=== PATIENT | male | born 1955 | race African-American/Black ===

== ENCOUNTER 2017-11-14 07:59 | Emergency (ER) | payer SELFPAY ==
[~2017-11-14] VITALS: Ht 180.3 cm; Wt 81.2 kg
[~2017-11-14 07:59] MED LIST: AMLO5TAB2 GT; INDM25C PO; LISI20TA PO
[2017-11-14 08:15] LABS: BASOPHILS % (AUTO) 0 % (0-10); EOSINOPHILS % (AUTO) 0 % (0-10); HEMATOCRIT 37 % (40-54); HEMOGLOBIN 12.3 G/DL (13.3-17.7); LYMPHOCYTES # (AUTO) 2.4 X 10^3 (1.0-4.0); LYMPHOCYTES % (AUTO) 22 % (12-44); MEAN CORPUSCULAR HEMOGLOBIN 28 PG (25-34); MEAN CORPUSCULAR HGB CONC 34 G/DL (32-36); MEAN CORPUSCULAR VOLUME 83 FL (80-99); MEAN PLATELET VOLUME 9.6 FL (7.4-10.4); MONOCYTES # (AUTO) 0.6 X 10^3 (0.0-1.0); MONOCYTES % (AUTO) 5 % (0-12); NEUTROPHILS # (AUTO) 8.1 X 10^3 (1.8-7.8); NEUTROPHILS % (AUTO) 73 % (42-75); PLATELET COUNT 272 10^3/uL (130-400); RED BLOOD COUNT 4.45 10^6/uL (4.35-5.85); RED CELL DISTRIBUTION WIDTH 16.6 % (10.0-14.5)
[2017-11-14] MEDS ORDERED: NITROGLYCERIN 0.4 MG SL TABS BTL 25'S SL PRN (08:15)
--- NOTE | 2017-11-14 08:20 | ED Cardiac General ---
History of Present Illness General Chief Complaint: Chest Pain Stated Complaint: CP Source: patient, family, EMS Exam Limitations: no limitations History of Present Illness Date Seen by Provider: Nov 14, 2017 Time Seen by Provider: 08:17 Initial Comments 62-year-old black male presents with severe sharp pain between his shoulder blades that occurred after eating a large breakfast. The patient's sharp severe chest pain radiated into both arms. The patient denied associated shortness of breath, diaphoresis, nausea or vomiting. Patient denies similar pain in the past. Significant past medical history includes hypertension. Allergies and Home Medications Allergies Coded Allergies: No Known Drug Allergies (Unverified , 11/30/14) Home Medications Amlodipine Besylate 5 Mg Tab, 5 MG GT DAILY Prescribed by: JOHN SHARMA on 11/30/14 1408 Indomethacin 25 Mg Cap, 25 MG PO TID Prescribed by: JOHN SHARMA on 11/30/14 1408 Lisinopril 20 Mg Tablet, 20 MG PO DAILY Prescribed by: JOHN SHARMA on 11/30/14 1408 Patient Home Medication List Home Medication List Reviewed: Yes Review of Systems Constitutional: No chills, No diaphoresis, No fever EENTM: No Blurred Vision Respiratory: Denies Cough, Denies Shortness of Air Cardiovascular: See HPI, Chest Pain Gastrointestinal: Denies Abdomen Distended, Denies Abdominal Pain, Denies Diarrhea, Denies Nausea Genitourinary: Denies Burning, Denies Frequency Musculoskeletal: see HPI, back pain Skin: No change in color, No rash Psychiatric/Neurological: No Symptoms Reported Endocrine: No Symptoms Reported Hematologic/Lymphatic: No Symptoms Reported Past Qcdwhls-Ecfmih-Vcuhpk Hx Past Med/Social Hx: Reviewed Nursing Past Med/Soc Hx Patient Social History Alcohol Use: Occasionally Uses Recreational Drug Use: No Smoking Status: Current Everyday Smoker Seasonal Allergies Seasonal Allergies: No Past Medical History Surgeries: Yes (R HAND) Respiratory: No Cardiac: Yes Hypertension Neurological: No Genitourinary: No Gastrointestinal: No Musculoskeletal: Yes Arthritis Endocrine: No Cancer: No Psychosocial: No Integumentary: No Blood Disorders: No Physical Exam Vital Signs Vital Signs - First Documented 11/14/17 08:25 Temp 97.4 Pulse 86 Resp 18 B/P (MAP) 170/109 (129) Pulse Ox 94 O2 Delivery Room Air Capillary Refill : Height, Weight, BMI Height: 5'7" Weight: 198lbs. oz. 89.301302ci; BMI Method: General Appearance: WD/WN, Mild Distress HEENT: Normal ENT Inspection Neck: Normal Inspection Respiratory: Lungs Clear Cardiovascular: Regular Rate, Rhythm, No Murmur Gastrointestinal: Normal Bowel Sounds Extremity: Normal Capillary Refill, Normal Inspection, Normal Range of Motion Neurologic/Psychiatric: Alert, Oriented x3, No Motor/Sensory Deficits Skin: Normal Color, Warm/Dry Progress/Results/Core Measures Results/Orders Lab Results Laboratory Tests Test 11/14/17 08:07 Range/Units White Blood Count 11.0 4.3-11.0 10^3/uL Red Blood Count 4.45 4.35-5.85 10^6/uL Hemoglobin 12.3 L 13.3-17.7 G/DL Hematocrit 37 L 40-54 % Mean Corpuscular Volume 83 80-99 FL Mean Corpuscular Hemoglobin 28 25-34 PG Mean Corpuscular Hemoglobin Concent 34 32-36 G/DL Red Cell Distribution Width 16.6 H 10.0-14.5 % Platelet Count 272 130-400 10^3/uL Mean Platelet Volume 9.6 7.4-10.4 FL Neutrophils (%) (Auto) 73 42-75 % Lymphocytes (%) (Auto) 22 12-44 % Monocytes (%) (Auto) 5 0-12 % Eosinophils (%) (Auto) 0 0-10 % Basophils (%) (Auto) 0 0-10 % Neutrophils # (Auto) 8.1 H 1.8-7.8 X 10^3 Lymphocytes # (Auto) 2.4 1.0-4.0 X 10^3 Monocytes # (Auto) 0.6 0.0-1.0 X 10^3 Eosinophils # (Auto) 0.0 0.0-0.3 10^3/uL Basophils # (Auto) 0.0 0.0-0.1 10^3/uL Prothrombin Time 12.8 12.2-14.7 SEC INR Comment 1.0 0.8-1.4 Activated Partial Thromboplast Time 27 24-35 SEC D-Dimer 0.36 0.00-0.49 UG/ML Sodium Level 146 H 135-145 MMOL/L Potassium Level 3.7 3.6-5.0 MMOL/L Chloride Level 116 H 98-107 MMOL/L Carbon Dioxide Level 19 L 21-32 MMOL/L Anion Gap 11 5-14 MMOL/L Blood Urea Nitrogen 21 H 7-18 MG/DL Creatinine 1.20 0.60-1.30 MG/DL Estimat Glomerular Filtration Rate > 60 BUN/Creatinine Ratio 18 Glucose Level 117 H 70-105 MG/DL Calcium Level 9.6 8.5-10.1 MG/DL Magnesium Level 2.0 1.8-2.4 MG/DL Total Bilirubin 0.2 0.1-1.0 MG/DL Aspartate Amino Transf (AST/SGOT) 23 5-34 U/L Alanine Aminotransferase (ALT/SGPT) 30 0-55 U/L Alkaline Phosphatase 53 40-136 U/L Myoglobin 23.6 10.0-92.0 NG/ML Troponin I < 0.30 <0.30 NG/ML B-Type Natriuretic Peptide 76.5 <100.0 PG/ML Total Protein 7.0 6.4-8.2 GM/DL Albumin 3.8 3.2-4.5 GM/DL Lipase 38 8-78 U/L My Orders Orders - MICHAEL, MIKAYLA Kim MD Cbc With Automated Diff (11/14/17 08:06) Magnesium (11/14/17 08:06) Chest 1 View, Ap/Pa Only (11/14/17 08:06) Ekg Tracing (11/14/17 08:06) Cardiac Profile 1 (11/14/17 08:06) Comprehensive Metabolic Panel (11/14/17 08:06) Myoglobin Serum (11/14/17 08:06) Protime With Inr (11/14/17 08:06) Partial Thromboplastin Time (11/14/17 08:06) O2 (11/14/17 08:06) Monitor-Rhythm Ecg Trace Only (11/14/17 08:06) Lipid Panel (11/15/17 06:00) Nitroglycerin 0.4 Mg Btl 25's (Nitrostat (11/14/17 08:15) Saline Lock/Iv-Start (11/14/17 08:06) Lipase (11/14/17 08:06) BNP (11/14/17 08:06) Fibrin Degradation Products (11/14/17 08:06) Metoprolol Tartrate Injection (Lopressor (11/14/17 08:30) Fentanyl Injection (Sublimaze Injection (11/14/17 09:15) Orphenadrine Injection (Norflex Injectio (11/14/17 09:15) Ct Angio Chest W (11/14/17 09:07) Iohexol Injection (Omnipaque 350 Mg/Ml 1 (11/14/17 09:30) Ns (Ivpb) (Sodium Chloride 0.9%) (11/14/17 09:30) Pharmacy Communication (Pharmacy Communi (11/14/17 09:20) Medications Given in ED Current Medications Medications Dose Ordered Sig/Elly Route Start Time Stop Time Status Last Admin Dose Admin Fentanyl Citrate 50 mcg ONCE ONCE IVP 11/14/17 09:15 11/14/17 09:16 DC 11/14/17 09:09 50 MCG Iohexol 125 ml ONCE ONCE IV 11/14/17 09:30 11/14/17 09:48 DC 11/14/17 09:31 125 ML Nitroglycerin 0.4 mg UD PRN SL 11/14/17 08:15 11/14/17 08:28 0.4 MG Orphenadrine Citrate 60 mg ONCE ONCE IV 11/14/17 09:15 11/14/17 09:16 DC 11/14/17 09:10 60 MG Sodium Chloride 250 ml ONCE ONCE IV 11/14/17 09:30 11/14/17 09:48 DC 11/14/17 09:31 80 ML Vital Signs/I&O 11/14/17 11/14/17 11/14/17 11/14/17 08:25 08:40 09:51 10:31 Temp 97.4 Pulse 86 86 68 72 Resp 18 18 18 B/P (MAP) 170/109 (129) 143/95 (111) 163/95 (117) 160/95 (116) Pulse Ox 94 96 98 97 O2 Delivery Room Air Room Air Room Air Room Air Progress Progress Note : Time: 10:42 Progress Note The patient's workup in the emergency department demonstrated an unremarkable EKG. There was some minimal improvement with the patient's back pain with nitroglycerin. Patient's first troponin was normal. The patient's d-dimer was normal. A CT study for PE was negative. While the patient was in radiology he vomited a large amount of food. His pain spontaneously resolved following the emesis. Departure Impression Primary Impression: Indigestion Disposition: 01 HOME, SELF-CARE Condition: Improved Departure-Patient Inst. Decision time for Depature: 10:46 Referrals: RAJENDRA TANNER MD (PCP/Family) Primary Care Physician Patient Instructions: Dyspepsia (DC) Add. Discharge Instructions: Close follow-up with your doctor. Call the office today. Return if any further problems. All discharge instructions reviewed with patient and/or family. Voiced understanding. MIKAYLA RODRIGUEZ MD Nov 14, 2017 08:20
[2017-11-14 08:28] LABS: PROTHROMBIN TIME PATIENT 12.8 SEC (12.2-14.7)
[2017-11-14] MEDS ORDERED: meTOprolol 5 MG/5 ML (LOPRESSOR) VIAL IV ONE (08:30)
[2017-11-14 08:36] LABS: ALANINE AMINOTRANSFERASE 30 U/L (0-55); ALBUMIN 3.8 GM/DL (3.2-4.5); ALKALINE PHOSPHATASE 53 U/L (40-136); BILIRUBIN,TOTAL 0.2 MG/DL (0.1-1.0); BUN/CREATININE RATIO 18; CALCIUM 9.6 MG/DL (8.5-10.1); CARBON DIOXIDE 19 MMOL/L (21-32); CHLORIDE 116 MMOL/L (98-107); GFR ESTIMATED > 60; GLUCOSE 117 MG/DL (70-105); LIPASE 38 U/L (8-78); POTASSIUM 3.7 MMOL/L (3.6-5.0); SODIUM 146 MMOL/L (135-145)
[2017-11-14 08:40] VITALS: BP_SYST 143; BP_SYST 150; BP_DIAS 102; BP_DIAS 95
[2017-11-14 08:46] LABS: MYOGLOBIN SERUM 23.6 NG/ML (10.0-92.0)
--- NOTE | 2017-11-14 09:13 | Diagnostic Imaging Report ---
Indication: Chest pain. Time of exam: 8:49 AM No prior studies available for comparison. The heart size is normal. There is some prominence of the ascending aorta. Some ectasia and tortuosity of the descending thoracic aorta. Lungs are clear. No infiltrate or failure is seen. Pulmonary vascularity is normal. No effusion or pneumothorax is detected. Impression: No acute cardiopulmonary process is detected. Dictated by: Dictated on workstation # [id number]
[2017-11-14] MEDS ORDERED: fentaNYL INJECTION 100 MCG/2 ML AMP IVP ONE (09:15)
[2017-11-14] MEDS ORDERED: ORPHENADRINE 60 MG/2 ML (NORFLEX) AMP IV ONE (09:15)
[2017-11-14] MEDS ORDERED: IOHEXOL 350 MG/ML 150 ML (OMNIPAQUE 350) VIAL IV ONE (09:30)
[2017-11-14] MEDS ORDERED: NS 250 ML (IVPB) BAG IV ONE (09:30)
[2017-11-14 09:51] VITALS: BP 163/95
--- NOTE | 2017-11-14 10:03 | Diagnostic Imaging Report ---
PROCEDURE: CT angiography of the chest with contrast. TECHNIQUE: Multiple contiguous axial images were obtained through the chest after uneventful bolus administration of intravenous contrast. Reconstructed CTA MIP acquisitions were also performed. INDICATION: Chest pain and back spasms. No prior CT angiogram studies of the chest are available for comparison. Evaluation of the pulmonary arterial system is without evidence of thrombi embolism. No filling defects are seen within central, lobar or segmental branches. Ascending thoracic aorta is somewhat prominent AP diameter 4.6 cm. Aortic arch and descending thoracic aorta are normal caliber. No dissection is identified. No pericardial or pleural fluid is identified. No definite axillary, hilar or mediastinal lymphadenopathy is detected. No parenchymal mass, nodule or infiltrate is detected. The upper abdomen is unremarkable. The bony structures are nonacute. IMPRESSION: 1. Mild ascending thoracic aortic dilatation. No dissection is detected. 2. No evidence of pulmonary embolism. Dictated by: Dictated on workstation # [id number]
[2017-11-14 10:31] VITALS: BP 160/95
[2017-11-14 11:03] VITALS: BP 161/101
== END 2017-11-14 11:03 | disposition home or self-care (01) ==
LOC: EDUNIT# 07:59 → ER 08:00
DX: K30 Functional dyspepsia (principal); I10 Essential (primary) hypertension; F17.200 Nicotine dependence, unspecified, uncomplicated
CPT/HCPCS: 36415; 71045; 71275; 80053; 83690; 83735; 83874; 83880; 84484; 85025; 85379; 85610; 85730; 93005; 93041; 96374; 96375

== ENCOUNTER → 2017-12-08 | Outpatient (CLI) | payer OTHER ==
--- NOTE | 2017-12-08 12:09 | Diagnostic Imaging Report ---
INDICATION: Knee pain, nontraumatic. TECHNIQUE: Two views of the bilateral knees. CORRELATION STUDY: None FINDINGS: There is very mild joint space narrowing suggested about the medial compartments bilaterally. The articular surface is otherwise smooth and intact. Calcification projects over the posterior aspect of the joint space of the right knee. The possibility of a calcified intraarticular loose body is not excluded. There does appear to be narrowing of the patellofemoral compartment, right greater than left. Well-corticated calcification superior to the tibial tuberosities bilaterally likely reflects a prior avulsion type injury. . IMPRESSION: 1. Negative for acute bony abnormality of the knee. Mild multicompartment degenerative changes are present, right slightly greater than left. The findings are slightly more pronounced in the patellofemoral compartments. 2. Small calcified intraarticular loose body suspected in the right posterior knee. Dictated by: Dictated on workstation # [id number]
== END ==
LOC: RAD 09:49
PROVIDERS: ATTEND General Practice
DX: M17.0 Bilateral primary osteoarthritis of knee (principal)

== ENCOUNTER 2019-03-01 19:01 | Emergency (ER) | payer MEDICAID, OTHER ==
[~2019-03-01] VITALS: Ht 172 cm; Wt 83.0 kg
--- NOTE | 2019-03-01 19:11 | ED Upper Extremity ---
General Stated Complaint: LT SHOULDER PAIN Source: patient History of Present Illness Date Seen by Provider: Mar 01, 2019 Time Seen by Provider: 19:11 Initial Comments 63-year-old male presenting with complaints of left shoulder pain. He states that this started a few weeks ago when he was lifting some heavy furniture at home by himself. He felt a pop in his shoulder and has had pain ever since. It wraps around his shoulder and is worse with movement. He denies having prior pain or problems with his shoulder. He has no numbness or tingling into his hand or arm. He has no weakness in his arm. He has not tried anything for the pain over the last few weeks. He states that the pain got worse today with the colder weather and rain moving in. Allergies and Home Medications Allergies Coded Allergies: No Known Drug Allergies (Unverified , 11/30/14) Home Medications Amlodipine Besylate 5 Mg Tab, 5 MG GT DAILY Prescribed by: JOHN SHARMA on 11/30/14 1408 Indomethacin 25 Mg Cap, 25 MG PO TID Prescribed by: JOHN SHARMA on 11/30/14 1408 Lisinopril 20 Mg Tablet, 20 MG PO DAILY Prescribed by: JOHN SHARMA on 11/30/14 1408 Patient Home Medication List Home Medication List Reviewed: Yes Review of Systems Constitutional: no symptoms reported EENTM: no symptoms reported Respiratory: no symptoms reported Cardiovascular: no symptoms reported Gastrointestinal: no symptoms reported Genitourinary: no symptoms reported Musculoskeletal: see HPI Skin: no symptoms reported Psychiatric/Neurological: See HPI Past Fnrfxvm-Hlrcdq-Yctmkq Hx Past Med/Social Hx: Reviewed Nursing Past Med/Soc Hx Patient Social History Recent Foreign Travel: No Contact w/Someone Who Travel: No Seasonal Allergies Seasonal Allergies: No Past Medical History Surgeries: Yes (R HAND) Respiratory: No Cardiac: Yes Hypertension Neurological: No Genitourinary: No Gastrointestinal: No Musculoskeletal: Yes Arthritis Endocrine: No Cancer: No Psychosocial: No Integumentary: No Blood Disorders: No Physical Exam Vital Signs Vital Signs - First Documented 03/01/19 19:08 Temp 36.5 Pulse 85 Resp 16 B/P (MAP) 162/102 (122) Pulse Ox 96 O2 Delivery Room Air Capillary Refill : Height, Weight, BMI Height: 5'11.00" Weight: 179lbs. oz. 81.948407pw; BMI Method:Stated General Appearance: WD/WN, no apparent distress Cardiovascular: normal peripheral pulses, regular rate, rhythm Respiratory: chest non-tender, lungs clear, normal breath sounds Shoulder: no evidence of injury, normal ROM (but painful range of motion. Able to hold arm up against resistance at 90 degrees of abduction); No asymmetry, No bone tenderness, No deformity, No ecchymosis; pain (left shoulder and clavicle), soft tissue tenderness (left shoulder and clavicle); No swelling Neurologic/Tendon: normal sensation, normal motor functions, normal tendon functions Neurologic/Psychiatric: alert, normal mood/affect, oriented x 3 Skin: normal color, warm/dry Progress/Results/Core Measures Results/Orders My Orders Orders - LORRAINE ALANIS MD Ketorolac Injection (Toradol Injection) (03/01/19 19:30) Shoulder 3 View Left (03/01/19 19:25) Dexamethasone Injection (Decadron Inject (03/01/19 20:13) Methylprednisolone Acetate Inj (Depo-Med (03/01/19 20:13) Rx-Hydrocodone/Apap 5-325 Mg (Rx-Vicodin (03/01/19 20:15) Orthopedic Equiment (03/01/19 20:13) Medications Given in ED Current Medications Medications Dose Ordered Sig/Elly Route Start Time Stop Time Status Last Admin Dose Admin Acetaminophen/ Hydrocodone Bitart 1 ea Q6H PRN PO 03/01/19 20:15 03/01/19 20:21 1 EA Ketorolac Tromethamine 60 mg ONCE ONCE IM 03/01/19 19:30 03/01/19 19:31 DC 03/01/19 19:30 60 MG Vital Signs/I&O 03/01/19 19:08 Temp 36.5 Pulse 85 Resp 16 B/P (MAP) 162/102 (122) Pulse Ox 96 O2 Delivery Room Air Progress Progress Note : Progress Note obtain xrays of left shoulder and no fracture or dislocation seen. arthritic changes noted. treat symptomatically with sling to rest shoulder and steroids for inflammation. Counseled to follow up with orthopedics/pcp for PT or MRI Diagnostic Imaging Diagonstic Imaging: Xray Plain Films/CT/US/NM/MRI: other (shoulder) Comments NAME: NANDINI MANZO REC#: [id number] PT STATUS: REG ER : 1955 PHYSICIAN: LORRAINE ALANIS MD ADMIT DATE: 03/01/19/ER FS Draft POSDate of Exam:03/01/19 SHOULDER 3 VIEW LEFT INDICATION: Left shoulder pain following lifting injury. FINDINGS: 3 views. The glenoid is in good alignment with the humeral head. Articulating surfaces are smooth. Joint spaces are well preserved. AC joint shows good alignment with mild hypertrophic change. There are no fractures. No soft tissue calcifications are seen about the shoulder. IMPRESSION: Mild degenerative changes noted in the AC joint with no acute abnormalities. Dictated on workstation # [id number] Dict: 03/01/191945 Trans: 03/01/19 1950 [facility] [id number] Interpreted by: JEANNETTE TA MD Electronically signed by: Departure Impression Primary Impression: Left shoulder strain Qualified Codes: S46.912A - Strain of unspecified muscle, fascia and tendon at shoulder and upper arm level, left arm, initial encounter Additional Impression: Arthritis of left shoulder region Disposition: 01 HOME, SELF-CARE Condition: Stable Departure-Patient Inst. Decision time for Depature: 20:16 Referrals: RAJENDRA TANNER MD (PCP/Family) Primary Care Physician Patient Instructions: How to Use a Shoulder Sling, Osteoarthritis (DC), Shoulder Pain (DC), Shoulder Sprain (DC) Add. Discharge Instructions: Use the shoulder sling for the next 3 days to let your arm and shoulder rest. After 3 days make sure you are taking your arm out and moving your shoulder around to keep it from stiffening up or freezing up. The steroids will help with pain and inflammation. Follow up with Ja Ferreira with Orthopedics by calling [phone] Gonzalez about your shoulder and they may want you to do Physical Therapy or have an MRI done to help with your shoulder pain. For severe pain and to help you rest you could use the Hydrocodone for the next night or two. LORRAINE ALANIS MD Mar 01, 2019 19:11 POS
[2019-03-01] MEDS ORDERED: KETOROLAC 60 MG/2 ML VIAL IM ONE (19:30)
--- NOTE | 2019-03-01 19:50 | Diagnostic Imaging Report ---
INDICATION: Left shoulder pain following lifting injury. FINDINGS: 3 views. The glenoid is in good alignment with the humeral head. Articulating surfaces are smooth. Joint spaces are well preserved. AC joint shows good alignment with mild hypertrophic change. There are no fractures. No soft tissue calcifications are seen about the shoulder. IMPRESSION: Mild degenerative changes noted in the AC joint with no acute abnormalities. Dictated by: Dictated on workstation # [id number]
[2019-03-01] MEDS ORDERED: DEXAMETHASONE 10 MG/ML (DECADRON) 1 ML VIAL IM STA (20:13)
[2019-03-01] MEDS ORDERED: methylPREDNISolone 80 MG/ML (DEPO MEDROL) VIAL IM STA (20:13)
[2019-03-01] MEDS ORDERED: RX-HYDROCODONE/APAP 5/325 MG #4 TAB PK PO PRN (20:15)
[2019-03-01 20:27] VITALS: BP 151/94
== END 2019-03-01 20:31 | disposition home or self-care (01) ==
LOC: EDUNIT# 19:01 → ER FS 19:03
DX: S46.912A Strain of unspecified muscle, fascia and tendon at shoulder and upper arm level, left arm, initial encounter (principal); I10 Essential (primary) hypertension; M19.012 Primary osteoarthritis, left shoulder; X50.0XXA Overexertion from strenuous movement or load, initial encounter; Y92.009 Unspecified place in unspecified non-institutional (private) residence as the place of occurrence of the external cause
CPT/HCPCS: 73030; 96372

== ENCOUNTER 2020-05-23 14:56 | Emergency (ER) | payer MEDICAID ==
[2020-05-23] MEDS ORDERED: NS IV 1000 ML 1,000 ML ONE (15:26)
--- NOTE | 2020-05-23 15:37 | ED GI ---
General Chief Complaint: Abdominal/GI Problems Stated Complaint: VOMITING Nursing Triage Note: states he was exposed to someone with covid 19 three days ago. Developed nausea and vomiting the same day as exposure and states he has been unable to keep down food or fluids. Sepsis Screen: Possible Sepsis Risk Source of Information: Patient Exam Limitations: No Limitations History of Present Illness Date Seen by Provider: May 23, 2020 Time Seen by Provider: 15:20 Initial Comments 64-year-old male presents with 2 days of nausea and vomiting. Denies any abdominal pain, fever or chills, but is concerned as he was "exposed to COVID- 19". Denies any chest pain, shortness of air, cough or weakness. Patient with past medical history significant for coronary artery disease and a stent 6 months ago. Patient admits he's been off his blood pressure medicine for the past 10 days, but filled the prescription today although he has not taken any of it. Allergies and Home Medications Allergies Coded Allergies: No Known Drug Allergies (Unverified , 11/30/14) Home Medications Amlodipine Besylate 5 Mg Tab, 5 MG GT DAILY Prescribed by: JOHN SHARMA on 11/30/14 1408 Indomethacin 25 Mg Cap, 25 MG PO TID Prescribed by: JOHN SHARMA on 11/30/14 1408 Lisinopril 20 Mg Tablet, 20 MG PO DAILY Prescribed by: JOHN SHARMA on 11/30/14 1408 Patient Home Medication List Home Medication List Reviewed: Yes Review of Systems Review of Systems Constitutional: No chills, No dizziness, No fever; malaise; No weakness EENTM: No Symptoms Reported Respiratory: No Symptoms Reported; Denies Cough, Denies Shortness of Air Cardiovascular: Denies Chest Pain, Denies Edema, Denies Lightheadedness, Denies Palpitations, Denies Syncope Gastrointestinal: See HPI; Denies Abdominal Pain, Denies Constipated, Denies Diarrhea; Nausea, Poor Appetite, Poor Fluid Intake Musculoskeletal: No back pain, No joint pain Skin: No change in color, No rash Past Sufodcq-Avhmbo-Nphruz Hx Past Med/Social Hx: Reviewed Nursing Past Med/Soc Hx Patient Social History Alcohol Use: Denies Use Drug of Choice: marijuana Smoking Status: Current Everyday Smoker Type Used: Cigarettes 2nd Hand Smoke Exposure: Yes Recent Infectious Disease Expo: No Seasonal Allergies Seasonal Allergies: No Past Medical History Surgeries: Yes (R HAND) Respiratory: No Cardiac: Yes Heart Attack, High Cholesterol, Hypertension Neurological: No Genitourinary: No Gastrointestinal: No Musculoskeletal: Yes Arthritis Endocrine: No HEENT: No Cancer: No Psychosocial: No Integumentary: No Blood Disorders: No Physical Exam Vital Signs Vital Signs - First Documented 05/23/20 15:10 Temp 35.8 Pulse 91 Resp 22 B/P (MAP) 194/108 (136) Pulse Ox 100 Capillary Refill : Less Than 3 Seconds Height/Weight/BMI Height: 5'11.00" Weight: 179lbs. oz. 81.286529sm; 28.00 BMI Method:Stated General Appearance: WD/WN, no apparent distress HEENT: PERRL/EOMI, normal ENT inspection Neck: non-tender, supple Respiratory: chest non-tender, lungs clear, normal breath sounds, no respiratory distress, no accessory muscle use Cardiovascular: regular rate, rhythm, no edema, no JVD Gastrointestinal: normal bowel sounds, non tender, soft, no pulsatile mass Extremities: normal range of motion, non-tender, no pedal edema Back: normal inspection, no CVA tenderness Neurologic/Psychiatric: alert, normal mood/affect Skin: normal color, warm/dry Progress/Results/Core Measures Results/Orders Lab Results Laboratory Tests Test 05/23/20 15:27 Range/Units White Blood Count 5.5 4.3-11.0 10^3/uL Red Blood Count 5.28 4.35-5.85 10^6/uL Hemoglobin 14.5 13.3-17.7 G/DL Hematocrit 44 40-54 % Mean Corpuscular Volume 83 80-99 FL Mean Corpuscular Hemoglobin 27 25-34 PG Mean Corpuscular Hemoglobin Concent 33 32-36 G/DL Red Cell Distribution Width 15.2 H 10.0-14.5 % Platelet Count 269 130-400 10^3/uL Mean Platelet Volume 9.4 7.4-10.4 FL Neutrophils (%) (Auto) 62 42-75 % Lymphocytes (%) (Auto) 30 12-44 % Monocytes (%) (Auto) 6 0-12 % Eosinophils (%) (Auto) 2 0-10 % Basophils (%) (Auto) 0 0-10 % Neutrophils # (Auto) 3.4 1.8-7.8 X 10^3 Lymphocytes # (Auto) 1.6 1.0-4.0 X 10^3 Monocytes # (Auto) 0.3 0.0-1.0 X 10^3 Eosinophils # (Auto) 0.1 0.0-0.3 10^3/uL Basophils # (Auto) 0.0 0.0-0.1 10^3/uL Sodium Level 137 135-145 MMOL/L Potassium Level 4.0 3.6-5.0 MMOL/L Chloride Level 99 98-107 MMOL/L Carbon Dioxide Level 28 21-32 MMOL/L Anion Gap 10 5-14 MMOL/L Blood Urea Nitrogen 15 7-18 MG/DL Creatinine 1.25 0.60-1.30 MG/DL Estimat Glomerular Filtration Rate > 60 BUN/Creatinine Ratio 12 Glucose Level 123 H 70-105 MG/DL Calcium Level 9.3 8.5-10.1 MG/DL Corrected Calcium 9.2 8.5-10.1 MG/DL Total Bilirubin 0.5 0.1-1.0 MG/DL Aspartate Amino Transf (AST/SGOT) 29 5-34 U/L Alanine Aminotransferase (ALT/SGPT) 28 0-55 U/L Alkaline Phosphatase 73 40-136 U/L Troponin I < 0.30 <0.30 NG/ML Total Protein 7.2 6.4-8.2 GM/DL Albumin 4.1 3.2-4.5 GM/DL My Orders Orders - ROVENSTGENARO OSCAREN L DO Ns Iv 1000 Ml (Sodium Chloride 0.9%) (05/23/20 15:26) Ed Iv/Invasive Line Start (05/23/20 15:32) Cbc With Automated Diff (05/23/20 15:32) Comprehensive Metabolic Panel (05/23/20 15:32) Troponin I Fs (05/23/20 15:32) Ondansetron Injection (Zofran Injectio (05/23/20 15:45) Medications Given in ED Current Medications Medications Dose Ordered Sig/Elly Route Start Time Stop Time Status Last Admin Dose Admin Ondansetron HCl 4 mg ONCE ONCE IVP 05/23/20 15:45 05/23/20 15:46 DC 05/23/20 16:08 4 MG Sodium Chloride 1,000 ml @ STK-MED ONCE .ROUTE 05/23/20 15:26 05/23/20 15:31 DC 05/23/20 16:08 999 MLS/HR Vital Signs/I&O 05/23/20 15:10 Temp 35.8 Pulse 91 Resp 22 B/P (MAP) 194/108 (136) Pulse Ox 100 Blood Pressure Mean: 136 Departure Impression Primary Impression: Nausea and vomiting Qualified Codes: R11.2 - Nausea with vomiting, unspecified Disposition: 01 HOME, SELF-CARE Condition: Improved Departure-Patient Inst. Decision time for Depature: 16:21 Referrals: RAJENDRA TANNER MD (PCP/Family) Primary Care Physician Patient Instructions: Nausea and Vomiting, Adult ED Add. Discharge Instructions: Follow up with Dr Tanner in 2 days if you are not improving, sooner if worse. PLEASE take your blood pressure medication DAILY as instructed. If you are running low, please ask for a refill before you run out. All discharge instructions reviewed with patient and/or family. Voiced understanding. Scripts Ondansetron (Ondansetron Odt) 4 Mg Tab.rapdis 4 MG PO TID for Nausea, #10 TAB Prov: JAMIL FAULKNER DO 05/23/20 JAMIL FAULKNER DO May 23, 2020 15:37
[2020-05-23 15:38] LABS: HEMATOCRIT 44 % (40-54); HEMOGLOBIN 14.5 G/DL (13.3-17.7); MEAN CORPUSCULAR HEMOGLOBIN 27 PG (25-34); MEAN CORPUSCULAR HGB CONC 33 G/DL (32-36); MEAN CORPUSCULAR VOLUME 83 FL (80-99); MEAN PLATELET VOLUME 9.4 FL (7.4-10.4); PLATELET COUNT 269 10^3/uL (130-400); WHITE BLOOD COUNT 5.5 10^3/uL (4.3-11.0)
[2020-05-23 15:39] LABS: BASOPHILS % (AUTO) 0 % (0-10); EOSINOPHILS # (AUTO) 0.1 10^3/uL (0.0-0.3); EOSINOPHILS % (AUTO) 2 % (0-10); LYMPHOCYTES # (AUTO) 1.6 X 10^3 (1.0-4.0); LYMPHOCYTES % (AUTO) 30 % (12-44); MONOCYTES # (AUTO) 0.3 X 10^3 (0.0-1.0); MONOCYTES % (AUTO) 6 % (0-12); NEUTROPHILS # (AUTO) 3.4 X 10^3 (1.8-7.8); NEUTROPHILS % (AUTO) 62 % (42-75)
[2020-05-23] MEDS ORDERED: ONDANSETRON 4 MG/2 ML (SDV) Z0FRAN IVP ONE (15:45)
[2020-05-23 15:56] LABS: CARBON DIOXIDE 28 MMOL/L (21-32); CHLORIDE 99 MMOL/L (98-107); SODIUM 137 MMOL/L (135-145)
[2020-05-23 15:57] LABS: ALANINE AMINOTRANSFERASE 28 U/L (0-55); ALBUMIN 4.1 GM/DL (3.2-4.5); ALKALINE PHOSPHATASE 73 U/L (40-136); BILIRUBIN,TOTAL 0.5 MG/DL (0.1-1.0); BUN/CREATININE RATIO 12; CALCIUM 9.3 MG/DL (8.5-10.1); CREATININE SERUM 1.25 MG/DL (0.60-1.30); GFR ESTIMATED > 60; GLUCOSE 123 MG/DL (70-105); TOTAL PROTEIN 7.2 GM/DL (6.4-8.2)
[2020-05-23] MEDS ORDERED: ONDA4TAB11 PO (16:22)
[2020-05-23 16:38] VITALS: BP 162/97
== END 2020-05-23 16:38 | disposition home or self-care (01) ==
LOC: EDUNIT# 14:56 → ER FS 14:58
DX: R11.2 Nausea with vomiting, unspecified (principal); I10 Essential (primary) hypertension; I25.2 Old myocardial infarction; F17.210 Nicotine dependence, cigarettes, uncomplicated
CPT/HCPCS: 36415; 80053; 84484; 85025

== ENCOUNTER 2020-05-24 17:19 | Emergency (ER) | payer MEDICAID ==
[~2020-05-24] VITALS: Ht 172.2 cm; Wt 78.0 kg
[~2020-05-24 17:19] MED LIST changes: +ONDA4TAB11 PO
[2020-05-24 17:51] LABS: ALBUMIN 4.1 GM/DL (3.2-4.5); BASOPHILS # (AUTO) 0.1 10^3/uL (0.0-0.1); BASOPHILS % (AUTO) 1 % (0-10); EOSINOPHILS # (AUTO) 0.2 10^3/uL (0.0-0.3); EOSINOPHILS % (AUTO) 3 % (0-10); HEMATOCRIT 44 % (40-54); HEMOGLOBIN 14.3 g/dL (13.3-17.7); LYMPHOCYTES # (AUTO) 1.9 10^3/uL (1.0-4.0); LYMPHOCYTES % (AUTO) 33 % (12-44); MEAN CORPUSCULAR HEMOGLOBIN 27 pg (25-34); MEAN CORPUSCULAR HGB CONC 32 g/dL (32-36); MEAN CORPUSCULAR VOLUME 84 fL (80-99); MEAN PLATELET VOLUME 9.2 fL (9.0-12.2); MONOCYTES # (AUTO) 0.4 10^3/uL (0.0-1.0); MONOCYTES % (AUTO) 7 % (0-12); NEUTROPHILS # (AUTO) 3.2 10^3/uL (1.8-7.8); NEUTROPHILS % (AUTO) 56 % (42-75); PLATELET COUNT 266 10^3/uL (130-400); WHITE BLOOD COUNT 5.8 10^3/uL (4.3-11.0)
[2020-05-24 17:52] LABS: CHLORIDE 100 MMOL/L (98-107); POTASSIUM 3.7 MMOL/L (3.6-5.0); SODIUM 139 MMOL/L (135-145)
[2020-05-24 17:53] LABS: CALCIUM 9.2 MG/DL (8.5-10.1)
[2020-05-24 17:54] LABS: GLUCOSE 77 MG/DL (70-105); TOTAL PROTEIN 7.9 GM/DL (6.4-8.2)
[2020-05-24 17:55] LABS: CARBON DIOXIDE 29 MMOL/L (21-32)
[2020-05-24 17:56] LABS: BILIRUBIN,TOTAL 0.3 MG/DL (0.1-1.0)
[2020-05-24 17:57] LABS: ALKALINE PHOSPHATASE 77 U/L (40-136)
[2020-05-24 17:58] LABS: CREATININE SERUM 1.45 MG/DL (0.60-1.30); GFR ESTIMATED 60
[2020-05-24 17:59] LABS: BUN/CREATININE RATIO 13
[2020-05-24 18:00] LABS: ALANINE AMINOTRANSFERASE 43 U/L (0-55)
--- NOTE | 2020-05-24 18:02 | ED Neurological Problem ---
General Chief Complaint: Neuro-Stroke Like Symptoms Stated Complaint: SLURRED SPEECH Nursing Triage Note: PT AMB TO [facility] 7 WITH COMPLAINT OF SLURRED SPEECH, N/V/D. WAS SEEN IN [facility] IN ER YESTERDAY FOR N/V/D AND GIVEN ZOFRAN. WOKE UP THIS MORNING WITH SLURRED SPEECH. Nursing Sepsis Screen: No Definite Risk Source: patient Exam Limitations: no limitations History of Present Illness Date Seen by Provider: May 24, 2020 Time Seen by Provider: 17:29 Initial Comments Here with report of waking up this morning with slurred speech and jerking mov ements. Seen in [place] yesterday for nausea, vomiting and diarrhea. In further questioning, he does have contact with somebody with "the virus" and is not sure if he has that. States nausea, vomiting and diarrhea started 2 days ago. Does have history of hypertension and heart disease. Apparently takes aspirin daily. He was started on ondansetron and that is the only new medicine. Still has some nausea, vomiting and diarrhea. Denies fever chills. Denies upper respiratory symptoms. States he overall does not feel well. Denies chest pain or breathing problems. Denies specific weakness or facial droop. Last known well time last night. Patient drove himself here from [place]. Timing/Duration: other (2 to 3 days) Severity: moderate Associated Symptoms: confusion; No fever/chills; nausea/vomiting, slurred speech; No vision changes, No weakness Allergies and Home Medications Allergies Coded Allergies: No Known Drug Allergies (Unverified , 11/30/14) Home Medications Amlodipine Besylate 5 Mg Tab, 5 MG GT DAILY Prescribed by: JOHN SHARMA on 11/30/14 140 Indomethacin 25 Mg Cap, 25 MG PO TID Prescribed by: JOHN SHARMA on 11/30/14 140 Lisinopril 20 Mg Tablet, 20 MG PO DAILY Prescribed by: JOHN SHARMA on 11/30/14 140 Ondansetron 4 Mg Tab.rapdis, 4 MG PO TID Prescribed by: JAMIL FAULKNER on 05/23/20 1622 Patient Home Medication List Home Medication List Reviewed: Yes Review of Systems Review of Systems Constitutional: see HPI; No chills, No fever Eyes: No Symptoms Reported Ears, Nose, Mouth, Throat: denies nose discharge, denies throat pain Cardiovascular: No chest pain, No edema Gastrointestinal: diarrhea, nausea, vomiting Genitourinary: no symptoms reported Musculoskeletal: no symptoms reported Psychiatric/Neurological: Denies Headache; Other (Jerking movements of the arms and neck) Hematologic/Lymphatic: No Symptoms Reported All Other Systems Reviewed Negative Unless Noted: Yes Past Zrjgqex-Hxekfe-Ckdzch Hx Past Med/Social Hx: Reviewed Nursing Past Med/Soc Hx Patient Social History Alcohol Use: Denies Use Drug of Choice: marijuana Smoking Status: Former Smoker Type Used: Cigarettes 2nd Hand Smoke Exposure: Yes Recent Infectious Disease Expo: No Immunizations Up To Date Tetanus Booster (TDap): Unknown PED Vaccines UTD: Yes Seasonal Allergies Seasonal Allergies: No Past Medical History Surgeries: Yes (R HAND) Coronary Stent Respiratory: No Cardiac: Yes Heart Attack, High Cholesterol, Hypertension Neurological: No Genitourinary: No Gastrointestinal: No Musculoskeletal: Yes Arthritis Endocrine: No HEENT: No Cancer: No Psychosocial: No Integumentary: No Blood Disorders: No Family Medical History Reviewed Nursing Family Hx No Pertinent Family Hx Physical Exam Vital Signs Vital Signs - First Documented 05/24/20 17:22 Pulse 83 Resp 20 B/P (MAP) 183/139 (154) Pulse Ox 100 O2 Delivery Room Air Capillary Refill : Less Than 3 Seconds Height, Weight, BMI Height: 5'11.00" Weight: 179lbs. oz. 81.068215zh; 26.00 BMI Method:Stated General Appearance: WD/WN, mild distress HEENT: PERRL/EOMI, pharynx normal Neck: non-tender, full range of motion, supple, other (Jerking movements with motion of head and shoulders) Respiratory: no respiratory distress, no accessory muscle use, crackles (Bilateral bases) Cardiovascular: regular rate, rhythm, no murmur Gastrointestinal: non tender, soft Back: normal inspection, no CVA tenderness, no vertebral tenderness Extremities: non-tender, other (Clubbing all fingers. Jerking movements noted with movement of upper extremities) Neurologic/Psychiatric: alert, other (Oriented to person and place but missed year and month. Reoriented and remembered date afterwards.) Crainal Nerves: PERRL, abnormal speech (Slightly slurred); No facial droop, No facial paresthesias, No facial weakness Coordination/Gait: normal finger to nose Motor/Sensory: no sensory deficit, no pronator drift Skin: normal color, warm/dry Stroke NIH Stroke Scale Assessment Level of Consciousness: 0=Alert (0), Level of Consciousness-Questions: 1=Answers one question (1), LOC Commands: 0=Performs both tasks (0), Visual Cheng: 0=No visual loss (0), Facial Movement (Facial Paresis): 0=Normal symmetrical mnt (0), Motor Function-Arms Right: 0=No drift (0), Motor Function-Arms Left: 0=No drift (0), Motor Function-Legs Right: 0=No drift (0), Motor Function-Legs Left: 0=No drift (0), Limb Ataxia: 0=Absent (0), Sensory: 0=Normal:no loss (0), Best Language: 0=No aphasia (0), Dysarthria: 1=Mild to moderate loss (1), Extinction & Inattention: 0=No abnormality (0), Total: Progress/Results/Core Measures Results/Orders Lab Results Laboratory Tests Test 05/24/20 17:33 05/24/20 17:35 05/24/20 17:36 05/24/20 19:15 Range/Units White Blood Count 5.8 4.3-11.0 10^3/uL Red Blood Count 5.26 4.30-5.52 10^6/uL Hemoglobin 14.3 13.3-17.7 g/dL Hematocrit 44 40-54 % Mean Corpuscular Volume 84 80-99 fL Mean Corpuscular Hemoglobin 27 25-34 pg Mean Corpuscular Hemoglobin Concent 32 32-36 g/dL Red Cell Distribution Width 14.7 H 10.0-14.5 % Platelet Count 266 130-400 10^3/uL Mean Platelet Volume 9.2 9.0-12.2 fL Immature Granulocyte % (Auto) 0 % Neutrophils (%) (Auto) 56 42-75 % Lymphocytes (%) (Auto) 33 12-44 % Monocytes (%) (Auto) 7 0-12 % Eosinophils (%) (Auto) 3 0-10 % Basophils (%) (Auto) 1 0-10 % Neutrophils # (Auto) 3.2 1.8-7.8 10^3/uL Lymphocytes # (Auto) 1.9 1.0-4.0 10^3/uL Monocytes # (Auto) 0.4 0.0-1.0 10^3/uL Eosinophils # (Auto) 0.2 0.0-0.3 10^3/uL Basophils # (Auto) 0.1 0.0-0.1 10^3/uL Immature Granulocyte # (Auto) 0.0 0.0-0.1 10^3/uL Prothrombin Time 13.3 12.2-14.7 SEC INR Comment 1.0 0.8-1.4 Activated Partial Thromboplast Time 35 24-35 SEC D-Dimer >= 0.27 0.00-0.49 UG/ML Sodium Level 139 135-145 MMOL/L Potassium Level 3.7 3.6-5.0 MMOL/L Chloride Level 100 98-107 MMOL/L Carbon Dioxide Level 29 21-32 MMOL/L Anion Gap 10 5-14 MMOL/L Blood Urea Nitrogen 19 H 7-18 MG/DL Creatinine 1.45 H 0.60-1.30 MG/DL Estimat Glomerular Filtration Rate 60 BUN/Creatinine Ratio 13 Glucose Level 77 70-105 MG/DL Calcium Level 9.2 8.5-10.1 MG/DL Corrected Calcium 9.1 8.5-10.1 MG/DL Total Bilirubin 0.3 0.1-1.0 MG/DL Aspartate Amino Transf (AST/SGOT) 28 5-34 U/L Alanine Aminotransferase (ALT/SGPT) 43 0-55 U/L Alkaline Phosphatase 77 40-136 U/L Troponin I < 0.028 <0.028 NG/ML C-Reactive Protein High Sensitivity 0.12 0.00-0.50 MG/DL B-Type Natriuretic Peptide 28.9 <100.0 PG/ML Total Protein 7.9 6.4-8.2 GM/DL Albumin 4.1 3.2-4.5 GM/DL Procalcitonin 0.04 <0.10 NG/ML Glucometer 79 70-110 MG/DL Coronavirus 2019 (KIRA) Negative Negative Urine Color YELLOW Urine Clarity CLEAR Urine pH 5.5 5-9 Urine Specific [place] 1.020 1.016-1.022 Urine Protein NEGATIVE NEGATIVE Urine Glucose (UA) NEGATIVE NEGATIVE Urine Ketones NEGATIVE NEGATIVE Urine Nitrite NEGATIVE NEGATIVE Urine Bilirubin NEGATIVE NEGATIVE Urine Urobilinogen 0.2 < = 1.0 MG/DL Urine Leukocyte Esterase NEGATIVE NEGATIVE Urine RBC (Auto) NEGATIVE NEGATIVE Urine RBC 0-2 /HPF Urine WBC 0-2 /HPF Urine Crystals PRESENT H /LPF Urine Amorphous Sediment RARE NICOLAS URATES H /LPF Urine Bacteria TRACE /HPF Urine Casts NONE /LPF Urine Mucus NEGATIVE /LPF Urine Culture Indicated NO Test 05/24/20 20:26 Range/Units Troponin I < 0.028 <0.028 NG/ML Micro Results Microbiology 05/24/20 Influenza Types A,B Antigen (NURA) - Final, Complete My Orders Orders - ROSIE ALMEIDA MD Cbc With Automated Diff (05/24/20 17:37) Protime With Inr (05/24/20 17:37) Partial Thromboplastin Time (05/24/20 17:37) Comprehensive Metabolic Panel (05/24/20 17:37) Fibrin Degradation Products (05/24/20 17:37) Troponin I (05/24/20 17:37) Ua Culture If Indicated (05/24/20 17:37) Chest 1 View, Ap/Pa Only (05/24/20 17:37) Ekg Tracing (05/24/20 17:37) Nothing By Mouth (05/24/20 Dinner) Accucheck Stat ONCE (05/24/20 17:37) Ed Iv/Invasive Line Start (05/24/20 17:37) Vital Signs Stroke Patient Q15M (05/24/20 17:37) Ct Head Wo-R/O Stroke (05/24/20 17:37) O2 (05/24/20 17:37) Intake & Output 06,14,22 (05/24/20 17:37) Monitor-Rhythm Ecg Trace Only (05/24/20 17:37) Dysphagia Screening Tool (05/24/20 17:37) Lipid Panel (05/25/20 06:00) Procalcitonin (Pct) (05/24/20 17:37) Hs C Reactive Protein (05/24/20 17:37) Covid 19 Inhouse Test (05/24/20 17:37) Influenza A And B Antigens (05/24/20 17:37) BNP (05/24/20 18:07) Hydralazine Injection (Apresoline Inject (05/24/20 18:15) Ns Iv 1000 Ml (Sodium Chloride 0.9%) (05/24/20 19:00) Troponin I (05/24/20 20:13) Medications Given in ED Current Medications Medications Dose Ordered Sig/Elly Route Start Time Stop Time Status Last Admin Dose Admin Hydralazine HCl 10 mg ONCE ONCE IV 05/24/20 18:15 05/24/20 18:16 DC 05/24/20 19:05 10 MG Sodium Chloride 1,000 ml @ 0 mls/hr Q0M ONCE IV 05/24/20 19:00 05/24/20 19:01 DC 05/24/20 19:05 0 MLS/HR Vital Signs/I&O 05/24/20 17:22 Pulse 83 Resp 20 B/P (MAP) 183/139 (154) Pulse Ox 100 O2 Delivery Room Air Blood Pressure Mean: 154 FSBG Bedside Testing Finger Stick Blood Glucose: 79 Progress Progress Note : Progress Note Seen and evaluated. Stroke evaluation initiated. EKG ordered. We will get C OVID-19 testing as well as influenza testing. Patient has hypertensive at this time. Hydralazine 10 mg IV ordered. Monitor patient. 2019: No acute findings. We will repeat troponin given his cardiac history to rule out atypical variant for chest pain. Monitor patient. 2114: Repeat troponin is negative. Patient states he actually feels much better now. I do believe this is likely medication reaction and viral illness. This was discussed with the patient. I will add ondansetron to his allergy list. Discharged home with return precautions. Patient verbalized understanding of instructions and agreement with plan. Initial ECG Impression Date: May 24, 2020 Initial ECG Impression Time: 17:23 Initial ECG Rate: 78 Initial ECG Rhythm: Normal Sinus Comment Sinus rhythm with normal axis. No evidence of ST elevation CT. Similar to previous of 11/14/2017. Interpreted by me. Diagnostic Imaging Diagonstic Imaging: Xray Plain Films/CT/US/NM/MRI: chest Comments [facility], [facility]. [place], [place] NAME: NANDINI MANZO Ursula [facility] REC#: [id number] PT STATUS: REG ER : 1955 PHYSICIAN: ROSIE ALMEIDA MD ADMIT DATE: 05/24/20/ER Draft Date of Exam:05/24/20 CHEST 1 VIEW, AP/PA ONLY EXAMINATION: Chest 1 view. HISTORY: Hypertension, stroke. COMPARISON: 11/16/2017. FINDINGS: The lungs are clear without edema or pneumonia. No pleural effusion or pneumothorax. Heart size is normal. IMPRESSION: Clear lungs. Dictated on workstation # [email or web address] Dict: 05/24/201819 Trans: 05/24/201823 [facility] [id number] Interpreted by: ALONZO ARGUELLES MD Electronically signed by: Shanikagodominique Imaging: CT Plain Films/CT/US/NM/MRI: head Comments [facility] [place] [place] NAME: NANDINI MANZO [facility] REC#: [id number] PT STATUS: REG ER : 1955 PHYSICIAN: ROSIE ALMEIDA MD ADMIT DATE: 05/24/20/ER Draft Date of Exam:05/24/20 CT HEAD WO-R/O STROKE EXAMINATION: CT head without contrast. TECHNIQUE: Multiple contiguous axial images were obtained through the brain without the use of intravenous contrast. All CT scans use one or more of the following dose optimizing techniques: automated exposure control, MA and/or KvP adjustment based on patient size and exam type or iterative reconstruction. HISTORY: Slurred speech. COMPARISON: None available. FINDINGS: The carias-white matter differentiation is normal. No mass effect or midline shift. The ventricles are normal in size and configuration. Basilar cisterns are patent. There are no intra- or extra-axial fluid collections. There is no intracranial hemorrhage. The orbits are normal. Paranasal sinuses are normal. Mastoid air cells are clear. No soft tissue abnormality is seen. No osseus lesions or fractures are seen. IMPRESSION: No acute intracranial abnormality. Dictated on workstation # [email or web address] Dict: 05/24/201819 Trans: 05/24/201823 [facility] [id number] Interpreted by: ALONZO ARGUELLES MD Electronically signed by: Departure Impression Primary Impression: Medication reaction Qualified Codes: T50.905A - Adverse effect of unspecified drugs, medicaments and biological substances, initial encounter Additional Impressions: Viral illness Diarrhea Qualified Codes: R19.7 - Diarrhea, unspecified Disposition: 01 HOME, SELF-CARE Condition: Improved Departure-Patient Inst. Decision time for Depature: 21:17 Referrals: RAJENDRA TANNER MD (PCP/Family) Primary Care Physician Patient Instructions: Diarrhea in Adolescents and Adults, Viral Gastroenter itis, Adverse Drug Reactions, Adult Add. Discharge Instructions: All discharge instructions reviewed with patient and/or family. Voiced understanding. Stop taking the ondansetron (Zofran). Clear liquid diet for the next 24 hours and then advance as tolerated. Drink plenty of fluids by taking small sips frequently. Follow-up with your doctor in a few days for recheck. Return for worse pain, fever, vomiting, weakness, breathing problems or other concerns as needed. ROSIE ALMEIDA MD May 24, 2020 18:02
[2020-05-24] MEDS ORDERED: hydrALAZINE (APESOLINE) 20 MG/ML VIAL IV ONE (18:15)
--- NOTE | 2020-05-24 18:24 | Diagnostic Imaging Report ---
EXAMINATION: Chest 1 view. HISTORY: Hypertension, stroke. COMPARISON: 11/16/2017. FINDINGS: The lungs are clear without edema or pneumonia. No pleural effusion or pneumothorax. Heart size is normal. IMPRESSION: Clear lungs. Dictated by: Dictated on workstation # [email or web address]
--- NOTE | 2020-05-24 18:25 | Diagnostic Imaging Report ---
EXAMINATION: CT head without contrast. TECHNIQUE: Multiple contiguous axial images were obtained through the brain without the use of intravenous contrast. All CT scans use one or more of the following dose optimizing techniques: automated exposure control, MA and/or KvP adjustment based on patient size and exam type or iterative reconstruction. HISTORY: Slurred speech. COMPARISON: None available. FINDINGS: The carias-white matter differentiation is normal. No mass effect or midline shift. The ventricles are normal in size and configuration. Basilar cisterns are patent. There are no intra- or extra-axial fluid collections. There is no intracranial hemorrhage. The orbits are normal. Paranasal sinuses are normal. Mastoid air cells are clear. No soft tissue abnormality is seen. No osseus lesions or fractures are seen. IMPRESSION: No acute intracranial abnormality. Dictated by: Dictated on workstation # [email or web address]
[2020-05-24 18:31] LABS: FIBRIN DEGRADATION PRODUCTS >= 0.27 UG/ML (0.00-0.49); PARTIAL THROMBOPLASTIN TIME 35 SEC (24-35); PROTHROMBIN TIME PATIENT 13.3 SEC (12.2-14.7)
[2020-05-24] MEDS ORDERED: NS IV 1000 ML 1,000 ML IV ONE (19:00)
[2020-05-24 19:23] LABS: BILIRUBIN,URINE NEGATIVE (NEGATIVE); CLARITY,URINE CLEAR; COLOR,URINE YELLOW; GLUCOSE, URINE (UA) NEGATIVE (NEGATIVE); KETONES,URINE NEGATIVE (NEGATIVE); LEUKOCYTE ESTERASE ,URINE NEGATIVE (NEGATIVE); NITRITE,URINE NEGATIVE (NEGATIVE); PH,URINE 5.5 (5-9); PROTEIN,URINE NEGATIVE (NEGATIVE)
[2020-05-24 19:44] LABS: RBC,URINE 0-2 /HPF; WBC,URINE 0-2 /HPF
[2020-05-24 19:45] LABS: AMORPHOUS SEDIMENT,UR RARE AMOR URATES /LPF; BACTERIA,URINE TRACE /HPF
[2020-05-24 21:20] VITALS: BP 165/98
== END 2020-05-24 21:23 | disposition home or self-care (01) ==
LOC: EDUNIT# 17:19 → ER 17:21
DX: R19.7 Diarrhea, unspecified (principal); T45.0X5A Adverse effect of antiallergic and antiemetic drugs, initial encounter; B34.9 Viral infection, unspecified; I25.2 Old myocardial infarction; I10 Essential (primary) hypertension; Z95.5 Presence of coronary angioplasty implant and graft; Z87.891 Personal history of nicotine dependence; Z20.822 Contact with and (suspected) exposure to COVID-19
CPT/HCPCS: 70450; 71045; 80053; 81000; 82962; 83880; 84145; 84484; 85025; 85379; 85610; 85730; 86141; 87804; 93005; 93041; 99284; U0002; 36415; 87635

== ENCOUNTER 2021-04-20 16:52 | Day surgery (SDC) | payer MEDICAID ==
[~2021-04-20] VITALS: Ht 172.7 cm; Wt 86.1 kg
[2021-04-20] MEDS ORDERED: CLOPIDOGREL 300 MG (PLAVIX) TABLET PO ONE ×3 (16:56→17:56)
[2021-04-20] MEDS ORDERED: HEParin 1000 UNIT/ML (10ML VIAL) FOR BOLUS ONE ×2 (16:56→17:26)
[2021-04-20] MEDS ORDERED: morphine INJ 10 MG/ML 1ML (SYR OR VIAL) IVP STA (17:04)
[2021-04-20] MEDS ORDERED: morphine INJ 10 MG/ML 1ML (SYR OR VIAL) ONE (17:06)
[2021-04-20] MEDS ORDERED: LACTATED RINGERS 1,000 ML IV ONE (17:07)
--- NOTE | 2021-04-20 17:08 | ED Chest Pain ---
General Stated Complaint: STEMI Source: patient, EMS Exam Limitations: no limitations (MAURO SALAZAR APRN) History of Present Illness Date Seen by Provider: Apr 20, 2021 Time Seen by Provider: 17:06 Initial Comments To ER by [facility] from home with reports of chest pain that began about 2 hours ago [place]. History of [place] with stents placed in [place] about 1 year ago. He is not taking his Plavix. EMS noted ST segment elevation in leads III, gave 324 mg of aspirin and 4 mg of morphine. This took his pain from a 10 out of 10 to a 5 out of 10. Records indicate a history of hypertension hyperlipidemia coronary artery disease. He has prescriptions for rosuvastatin 20 mg daily Norvasc 5 mg daily bisoprolol 5 mg daily lisinopril/HCTZ 20/12.5 mg. Also he is supposed to be on Plavix 75 mg but is unclear when he last took his medications. He does smoke marijuana occasionally. No other drug use. Timing/Duration: changing over time Severity/Quality: moderate Location: central Radiation: no radiation Activities at Onset: none ASA po ADMINISTRATIVE SERVICES OFFICER: No NTG SL ADMINISTRATIVE SERVICES OFFICER: No (MAURO SALAZAR APRN) Allergies and Home Medications Allergies Coded Allergies: ondansetron (Verified Allergy, Intermediate, 05/24/20) Patient Home Medication List Home Medication List Reviewed: Yes (MAURO SALAZAR APRN) Amlodipine Besylate (Norvasc Tablet) 5 Mg Tab, 5 MG GT DAILY Prescribed by: JOHN SHARMA on 11/30/14 1408 Aspirin (Children's Aspirin) 81 Mg Tab.chew, 81 MG PO DAILY Prescribed by: EMIL BARON on 04/22/21 1105 Atorvastatin Calcium (Atorvastatin Calcium) 80 Mg Tablet, 80 MG PO HS Prescribed by: EMIL BARON on 04/22/21 1105 Clopidogrel Bisulfate (Clopidogrel) 75 Mg Tablet, 75 MG PO DAILY Prescribed by: EMIL BARON on 04/22/21 1105 Lisinopril (Lisinopril) 2.5 Mg Tablet, 2.5 MG PO DAILY Prescribed by: EMIL BARON on 04/22/21 1105 Metoprolol Succinate (Metoprolol Succinate) 50 Mg Tab.er.24h, 50 MG PO DAILY Prescribed by: EMIL BARON on 04/22/21 1105 Discontinued Medications Indomethacin (Indocin Capsule) 25 Mg Cap, 25 MG PO TID Prescribed by: JOHN SHARMA on 11/30/14 1408 Lisinopril (Prinivil) 20 Mg Tablet, 20 MG PO DAILY Prescribed by: JOHN SHARMA on 11/30/14 1408 Ondansetron (Ondansetron Odt) 4 Mg Tab.rapdis, 4 MG PO TID Prescribed by: JAMIL FAULKNER on 05/23/20 1622 Review of Systems Review of Systems Constitutional: see HPI EENTM: No Symptoms Reported Respiratory: No Symptoms Reported Cardiovascular: See HPI, Chest Pain Gastrointestinal: No Symptoms Reported Genitourinary: No Symptoms Reported Musculoskeletal: no symptoms reported Skin: no symptoms reported Psychiatric/Neurological: No Symptoms Reported Endocrine: No Symptoms Reported Hematologic/Lymphatic: No Symptoms Reported (MAURO SALAZAR APRN) Past Mvxmogy-Pvsfrn-Djjeje Hx Immunizations Up To Date Tetanus Booster (TDap): Unknown PED Vaccines UTD: Yes (MAURO SALAZAR APRN) Seasonal Allergies Seasonal Allergies: No (MAURO SALAZAR APRN) Past Medical History Surgeries: Yes (R HAND) Coronary Stent Respiratory: No Cardiac: Yes Heart Attack, High Cholesterol, Hypertension Neurological: No Genitourinary: No Gastrointestinal: No Musculoskeletal: Yes Arthritis Endocrine: No HEENT: No Cancer: No Psychosocial: No Integumentary: No Blood Disorders: No (MAURO SALAZAR APRN) Family Medical History No Pertinent Family Hx (MAURO SALAZAR APRN) Physical Exam Vital Signs Vital Signs - First Documented 04/20/21 16:55 Temp 36.6 Pulse 87 Resp 20 B/P (MAP) 143/112 (122) Pulse Ox 100 O2 Delivery Nasal Cannula (ROSE HERRON MD) Vital Signs Capillary Refill : (MAURO SALAZAR APRN) Height, Weight, BMI Height: 5'11.00" Weight: 179lbs. oz. 81.834444cz; 26.00 BMI Method:Stated General Appearance: No Apparent Distress, WD/WN, Other (Alert and oriented heart rate 94. Blood pressure 160/120.) Neck: Full Range of Motion, Normal Inspection Respiratory: No Accessory Muscle Use, No Respiratory Distress Cardiovascular: Regular Rate, Rhythm, Normal Peripheral Pulses (Follow) Gastrointestinal: Non Tender, Soft Neurologic/Psychiatric: Alert, Oriented x3 Skin: Normal Color, Warm/Dry (MAURO SALAZAR APRN) Progress/Results/Core Measures Results/Orders Lab Results Laboratory Tests Test 04/20/21 17:04 Range/Units White Blood Count 5.6 4.3-11.0 10^3/uL Red Blood Count 4.61 4.30-5.52 10^6/uL Hemoglobin 12.4 L 13.3-17.7 g/dL Hematocrit 38 L 40-54 % Mean Corpuscular Volume 83 80-99 fL Mean Corpuscular Hemoglobin 27 25-34 pg Mean Corpuscular Hemoglobin Concent 33 32-36 g/dL Red Cell Distribution Width 15.1 H 10.0-14.5 % Platelet Count 286 130-400 10^3/uL Mean Platelet Volume 9.5 9.0-12.2 fL Immature Granulocyte % (Auto) 0 % Neutrophils (%) (Auto) 41 L 42-75 % Lymphocytes (%) (Auto) 47 H 12-44 % Monocytes (%) (Auto) 8 0-12 % Eosinophils (%) (Auto) 4 0-10 % Basophils (%) (Auto) 1 0-10 % Neutrophils # (Auto) 2.3 1.8-7.8 10^3/uL Lymphocytes # (Auto) 2.6 1.0-4.0 10^3/uL Monocytes # (Auto) 0.5 0.0-1.0 10^3/uL Eosinophils # (Auto) 0.2 0.0-0.3 10^3/uL Basophils # (Auto) 0.1 0.0-0.1 10^3/uL Immature Granulocyte # (Auto) 0.0 0.0-0.1 10^3/uL Prothrombin Time 13.6 12.2-14.7 SEC INR Comment 1.0 0.8-1.4 Activated Partial Thromboplast Time > 200 *H 24-35 SEC Sodium Level 139 135-145 MMOL/L Potassium Level 3.3 L 3.6-5.0 MMOL/L Chloride Level 103 98-107 MMOL/L Carbon Dioxide Level 24 21-32 MMOL/L Anion Gap 12 5-14 MMOL/L Blood Urea Nitrogen 25 H 7-18 MG/DL Creatinine 1.54 H 0.60-1.30 MG/DL Estimat Glomerular Filtration Rate 55 BUN/Creatinine Ratio 16 Glucose Level 89 70-105 MG/DL Calcium Level 8.7 8.5-10.1 MG/DL Corrected Calcium 9.0 8.5-10.1 MG/DL Magnesium Level 2.0 1.6-2.4 MG/DL Total Bilirubin 0.3 0.1-1.0 MG/DL Aspartate Amino Transf (AST/SGOT) 37 H 5-34 U/L Alanine Aminotransferase (ALT/SGPT) 52 0-55 U/L Alkaline Phosphatase 73 40-136 U/L Myoglobin 143.9 H 10.0-92.0 NG/ML Troponin I 0.049 H <0.028 NG/ML Total Protein 7.3 6.4-8.2 GM/DL Albumin 3.6 3.2-4.5 GM/DL (ROSE HERRON MD) My Orders Orders - ROSE HERRON MD Cbc With Automated Diff (04/20/21 16:57) Magnesium (04/20/21 16:57) Ekg Tracing (04/20/21 16:57) Comprehensive Metabolic Panel (04/20/21 16:57) Myoglobin Serum (04/20/21 16:57) Protime With Inr (04/20/21 16:57) Partial Thromboplastin Time (04/20/21 16:57) O2 (04/20/21 16:57) Monitor-Rhythm Ecg Trace Only (04/20/21 16:57) Ed Iv/Invasive Line Start (04/20/21 16:57) Troponin I Matthew (04/20/21 16:57) Clopidogrel Tablet (Plavix Tablet) (04/20/21 16:56) Heparin (Bolus Per Protocol) (Heparin (B (04/20/21 16:56) (ROSE HERRON MD) Vital Signs/I&O 04/20/21 04/20/21 16:55 17:15 Temp 36.6 36.6 Pulse 87 77 Resp 20 20 B/P (MAP) 143/112 (122) 172/115 Pulse Ox 100 99 O2 Delivery Nasal Cannula Nasal Cannula (ROSE HERRON MD) Departure Impression Primary Impression: STEMI (ST elevation myocardial infarction) Disposition: 09 ADMITTED INPATIENT Condition: Stable Admissions Decision to Admit Reason: Admit from ER (General) Decision to Admit/Date: Apr 20, 2021 Time/Decision to Admit Time: 17:12 (MAURO SALAZAR APRN) Departure-Patient Inst. Referrals: RAJENDRA TANNER MD (PCP/Family) Primary Care Physician Scripts Lisinopril (Lisinopril) 2.5 Mg Tablet 2.5 MG PO DAILY, #30 TAB 1 Refill Prov: NURA MELARA MD [facility] 04/22/21 Aspirin (Children's Aspirin) 81 Mg Tab.chew 81 MG PO DAILY for 30 Days, #30 TAB 2 Refills Prov: NURA MELARA MD [facility] 04/22/21 Metoprolol Succinate (Metoprolol Succinate) 50 Mg Tab.er.24h 50 MG PO DAILY for 30 Days, #30 TAB 1 Refill Prov: NURA MELARA MD [facility] 04/22/21 Atorvastatin Calcium (Atorvastatin Calcium) 80 Mg Tablet 80 MG PO HS for 30 Days, #30 TAB 1 Refill Prov: NURA MELARA MD [facility] 04/22/21 Clopidogrel Bisulfate (Clopidogrel) 75 Mg Tablet 75 MG PO DAILY for 30 Days, #30 TAB 1 Refill Prov: NURA MELARA MD [facility] 04/22/21 ATTENDING PHYSICIAN NOTE: I was physically present as attending physician in the emergency department during the care of this patient, but I was not directly involved in the decision making or delivery of care for this patient. (ROSE HERRON MD) MAURO SALAZAR APRN Apr 20, 2021 17:08 ROSE HERRON MD Apr 23, 2021 06:56
[2021-04-20 17:15] VITALS: BP 172/115
[2021-04-20] MEDS ORDERED: LACTATED RINGERS 1,000 ML IV SCH (17:15)
[2021-04-20] MEDS ORDERED: HEParin 1000 UNIT/ML (10ML VIAL) FOR BOLUS IV SCH (17:15)
[2021-04-20 17:17] LABS: BASOPHILS # (AUTO) 0.1 10^3/uL (0.0-0.1); BASOPHILS % (AUTO) 1 % (0-10); EOSINOPHILS # (AUTO) 0.2 10^3/uL (0.0-0.3); EOSINOPHILS % (AUTO) 4 % (0-10); HEMATOCRIT 38 % (40-54); HEMOGLOBIN 12.4 g/dL (13.3-17.7); LYMPHOCYTES # (AUTO) 2.6 10^3/uL (1.0-4.0); LYMPHOCYTES % (AUTO) 47 % (12-44); MEAN CORPUSCULAR HEMOGLOBIN 27 pg (25-34); MEAN CORPUSCULAR HGB CONC 33 g/dL (32-36); MEAN CORPUSCULAR VOLUME 83 fL (80-99); MEAN PLATELET VOLUME 9.5 fL (9.0-12.2); MONOCYTES # (AUTO) 0.5 10^3/uL (0.0-1.0); MONOCYTES % (AUTO) 8 % (0-12); NEUTROPHILS # (AUTO) 2.3 10^3/uL (1.8-7.8); NEUTROPHILS % (AUTO) 41 % (42-75); PLATELET COUNT 286 10^3/uL (130-400); WHITE BLOOD COUNT 5.6 10^3/uL (4.3-11.0)
[2021-04-20 17:19] LABS: ALBUMIN 3.6 GM/DL (3.2-4.5)
[2021-04-20 17:20] LABS: POTASSIUM 3.3 MMOL/L (3.6-5.0)
[2021-04-20 17:21] LABS: CALCIUM 8.7 MG/DL (8.5-10.1)
[2021-04-20 17:22] LABS: TOTAL PROTEIN 7.3 GM/DL (6.4-8.2)
[2021-04-20 17:24] LABS: BILIRUBIN,TOTAL 0.3 MG/DL (0.1-1.0)
[2021-04-20 17:26] LABS: CREATININE SERUM 1.54 MG/DL (0.60-1.30)
[2021-04-20] MEDS ORDERED: NITRO DRIP 25000 MCG/D5W 250 ML IV ONE (17:26)
[2021-04-20] MEDS ORDERED: fentaNYL INJ 100 MCG/2 ML AMP ONE (17:26)
[2021-04-20] MEDS ORDERED: MIDAZOLAM 5 MG/5 ML (VERSED) VIAL ONE (17:26)
[2021-04-20 17:36] LABS: PROTHROMBIN TIME PATIENT 13.6 SEC (12.2-14.7)
[2021-04-20 17:40] LABS: PARTIAL THROMBOPLASTIN TIME > 200 SEC (24-35)
[2021-04-20] MEDS ORDERED: HEParin (CATH LAB) 2,000 ML IV ONE (18:03)
--- NOTE | 2021-04-20 18:08 | Cardiology History & Physical ---
HPI-Cardiology Cardiology H&P Date of Admission Primary Care Physician Javier Oneill MD Attending Physician Mireya Knott MD, MA FACP [facility] [place] Consulting Physician LUIS CC: Chest pain HPI 65 yo man chest pain that began about 2 hours ago prior to presentation to this hosp. History of [place] with stents placed in [place] about 1 year ago. States has not been taking any meds, including his Plavix. EMS noted ST segment elevation in leads III, gave 324 mg of aspirin and 4 mg of morphine. This took his pain from a 10 out of 10 to a 5 out of 10. Provided informed consent for emergency card cath and possible ad hoc cor intervetnion. 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 Records indicate a history of hypertension hyperlipidemia coronary artery dise ase. Denies smoking. Occasionally uses marijuana Review of Systems-Cardiology Review of Systems Constitutional: No weight loss, No weight gain Eyes: No vision change Ears/Nose/Throat: No ear discharge, No nasal drainage, No recent hearing loss Respiratory: No orthopnea, No shortness of breath Cardiovascular: As described under HPI Gastrointestinal: No diarrhea, No nausea, No vomiting Genitourinary: No dysuria, No hematuria Musculoskeletal: No back pain, No joint pain Skin: No rash, No ulcerations Psychiatric/Neurological: No seizure, No focal weakness, No syncope Hematologic: No bleeding abnormalities [id number]-Waomzo Hx Patient Social History 2nd Hand Smoke Exposure: Yes Immunizations Up To Date Tetanus Booster (TDap): Unknown Past Medical History PMH As described under Assessment. Family Medical History Family Medical History: Does not provide fam h/o early CAD Allergies and Home Medications Allergies Coded Allergies: ondansetron (Verified Allergy, Intermediate, 05/24/20) Patient Home Medication List Home Medication List Reviewed: Yes Amlodipine Besylate (Norvasc Tablet) 5 Mg Tab, 5 MG GT DAILY Prescribed by: JOHN SHARMA on 11/30/14 140 Indomethacin (Indocin Capsule) 25 Mg Cap, 25 MG PO TID Prescribed by: JOHN SHARMA on 11/30/14 140 Lisinopril (Prinivil) 20 Mg Tablet, 20 MG PO DAILY Prescribed by: JOHN SHARMA on 11/30/14 140 Ondansetron (Ondansetron Odt) 4 Mg Tab.rapdis, 4 MG PO TID Prescribed by: JAMIL FAULKNER on 05/23/20 1622 Physical Exam-Cardiology Physical Exam Vital Signs/I&O Capillary Refill : Constitutional: AAO x 3 (albeit somewhat somnolent); No apparent distress; well-developed, well-nourished HEENT: PERRL, hearing is well preserved Neck: carotid pulses are 2 + bilaterally, with good upstrokes Respiratory: No accessory muscle use; other (good, bilateral air entry) Cardiovascular: regular rate-rhythm, S1 and S2, systolic murmur (soft BRIAN at card base) Gastrointestinal: No tender; soft; No guarding, No rebound; audible bowel sounds Extremities: No clubbing, No cyanosis, No significant edema Neurologic/Psychiatric: other (moves all limbs equally) Skin: No rash on exposed areas, No ulcerations on exposed areas Data Review Labs Laboratory Tests 04/20/21 17:04: White Blood Count 5.6, Red Blood Count 4.61, Hemoglobin 12.4L, Hematocrit 38L, Mean Corpuscular Volume 83, Mean Corpuscular Hemoglobin 27, Mean Corpuscular Hemoglobin Concent 33, Red Cell Distribution Width 15.1H, Platelet Count 286, Mean Platelet Volume 9.5, Immature Granulocyte % (Auto) 0, Neutrophils (%) (Auto) 41L, Lymphocytes (%) (Auto) 47H, Monocytes (%) (Auto) 8, Eosinophils (%) (Auto) 4, Basophils (%) (Auto) 1, Neutrophils # (Auto) 2.3, Lymphocytes # (Auto) 2.6, Monocytes # (Auto) 0.5, Eosinophils # (Auto) 0.2, Basophils # (Auto) 0.1, Immature Granulocyte # (Auto) 0.0, Prothrombin Time 13.6, INR Comment 1.0, Act ivated Partial Thromboplast Time > 200*H, Sodium Level 139, Potassium Level 3.3L , Chloride Level 103, Carbon Dioxide Level 24, Anion Gap 12, Blood Urea Nitrogen 25H, Creatinine 1.54H, Estimat Glomerular Filtration Rate 55, BUN/Creatinine Ratio 16, Glucose Level 89, Calcium Level 8.7, Corrected Calcium 9.0, Magnesium Level 2.0, Total Bilirubin 0.3, Aspartate Amino Transf (AST/SGOT) 37H, Alanine Aminotransferase (ALT/SGPT) 52, Alkaline Phosphatase 73, Myoglobin 143.9H, Tr oponin I 0.049H, Total Protein 7.3, Albumin 3.6 Laboratory Tests 04/20/21 17:04 A/P-Cardiology Assessment/Admission Diagnosis Ac [place] (minimal ST elevation in a single lead - lead III) - urgent card cath shows LMCA ok, mild LAD plaques, probable mid LCx stent w/o restenoses, multiple up to 50 in LCX, dominant RCA with multiple 50s in prox and distal portions, and subtotal occlusion of a very small caliber RV branch that is not amenable to intervention; LVEDP 35, LVEF 40% H/o hypertension H/o hyperlipidemia H/o noncompliance with meds Admission Status: Inpatient Order (span 2 midnights) Reason for Inpatient Admission: Ac [place] Discussion and Recomendations * Medical therapy because culprit vessel is a miniscule RV branch of RCA. There are multiple mod lesions within the RCA and the LCx * Dual antiplatelet therapy * Lovenox for 24-48 hours * Beta-anjali and SERG-inhibitor * Statin * Morphine for control of pain, if recurrent * Echo * Monitor labs * Advised med compliance Clinical Quality Measures AMI/AHF: ASA po Prior to arrival: MIREYA Durham MD [facility] Apr 20, 2021 18:08
[2021-04-20] MEDS ORDERED: FUROSEMIDE 40 MG/4 ML INJ (LASIX) IVP NR (18:30)
[2021-04-20] MEDS ORDERED: PATIENT MAY USE OWN MEDS, ALL PO SCH (18:30)
[2021-04-20] MEDS ORDERED: ACETAMINOPHEN 325 MG TABLET PO PRN (18:30)
[2021-04-20] MEDS ORDERED: MAGNESIUM 1 GM/100 ML IVPB 100 ML IV ONE (18:30)
[2021-04-20] MEDS ORDERED: meTOproloL SUCCINATE 50 MG (TOPROL XL) TAB PO NR (18:30)
[2021-04-20] MEDS ORDERED: KCL 20 MEQ TAB (K-DUR) PO NR (18:30)
[2021-04-20] MEDS ORDERED: amLODIPine 5 MG (NORVASC) TAB PO NR (18:30)
[2021-04-20] MEDS: NS IV 1000 ML 1,000 ML IV SCH (18:54)
[2021-04-20] MEDS: ENOXAPARIN 80 MG/0.8 ML (LOVENOX) SYR SC SCH (18:55)
--- NOTE | 2021-04-20 20:17 | Tele-ICU Progress Note ---
Progress Note eICU 65 yo man admitted to ED per EMS w/ 2 hour hx of chest pain . PMHx TX and stents, not on Plavix. HTN, HLD EKG- sinus, Nl axis, min ST elev V3 and T wave flattening in V3-V6, I, avL Labs- K 3.3 Mg 2.0 BUN 25 Creat 1.54 1st Trop 0.049 Taken to labor/excavator with report as follows per Cardiology notes: "LMCA ok, mild LAD plaques, probable mid LCx stent w/o restenoses, multiple up to 50 in LCX, dominant RCA with multiple 50s in prox and distal portions, and subtotal occlusion of a very small caliber RV branch that is not amenable to intervention; LVEDP 35, LVEF 40%" Cardiology has iitiated dual antiplatelet therapy (plavix, aspirin) , statin, restart on his anti hypertensive Rx metoprolol XL 50 BID, Low K was replaced. BP running 153/107 HR 82- he is to estart metoprolol tonight. UA, UDS not sent yet, requested - d/w nursing, no teleICU intervention needed at this time. Focused Exam Height, Weight, BMI Height: 5'11.00" Weight: 179lbs. oz. 81.358935uf; 26.15 BMI Method:Stated SALVADOR ALMEIDA DO Apr 20, 2021 20:17
--- NOTE | 2021-04-20 21:07 | CARDIAC CATHETERIZATION ---
DATE OF SERVICE: 04/20/2021 CARDIAC CATHETERIZATION REPORT The patient is a 65-year-old man who presented with chest pain. There was minimal ST elevation in lead III. He reported a history of coronary artery disease and a history of coronary stenting about a year ago in [place], [place]. He has been noncompliant with medications. Urgent cardiac catheterization was carried out for which he provided informed consent. DESCRIPTION OF PROCEDURE: He was brought to the cardiac catheterization laboratory. Right groin was prepared and draped in the usual sterile fashion. Lidocaine 1% was used for local anesthesia. Modified Seldinger technique was used to advance a 6-Spanish sheath in the right femoral artery. We used a 6-Spanish JR4 guide catheter with side holes to engage the right coronary artery. Right coronary angiography was performed. The catheter was removed. We used a 6-Spanish JL5 catheter to engage the left coronary artery. We used a 6-Spanish pigtail catheter for left heart catheterization, left ventricular angiography. The pigtail catheter was pulled back to the aortic root and aortic root angiography was performed. The catheter was then removed. Angiography of the right femoral artery was carried out through the sheath. Mynx was used to achieve hemostasis. He tolerated the procedure well. HEMODYNAMICS: Left ventricular end-diastolic pressure following coronary angiography was 35 mmHg. There was no significant pressure gradient on pullback across the aortic valve. Ascending aortic pressure was 163/103 with a mean 127 mmHg. CORONARY ANGIOGRAPHY: Left main coronary artery is free of angiographically significant disease. The left anterior descending artery has mild plaques. Left circumflex artery has multiple stenoses of up to approximately 50% in its mid portion. There appears to be mid left circumflex artery stent that does not show stent restenosis. Right coronary artery is dominant and has multiple 50% stenoses in its proximal and distal portions. A tiny right ventricular branch is subtotally occluded and is likely the culprit and is not amenable to intervention due to extremely small vessel size. LEFT VENTRICULAR ANGIOGRAPHY: Left ventricular angiography was carried out in the right anterior oblique projection. Global left ventricular systolic function appears to be mildly to moderately impaired. Left ventricular ejection fraction approximately 40% to 45%. There appears to be basal inferior hypokinesis that is more prominent than the mild to moderate diffuse hypokinesis. CONCLUSIONS: 1. Coronary artery disease, diffuse, moderate. The culprit lesion is a very small right ventricular branch that is subtotally occluded and is not amenable to intervention on account of very small vessel caliber. 2. Elevated left ventricular end-diastolic pressure. 3. Mild impairment of global left ventricular systolic function with ejection fraction 40% to 45%. DISCUSSION AND RECOMMENDATIONS: He is being hospitalized. Dual antiplatelet therapy has been initiated. Beta anjali therapy is being given. He is exhibiting renal insufficiency at the time of this dictation. Once the progression of renal insufficiency has been ascertained, we will initiate therapy with SERG inhibitor/angiotensin receptor blockers if feasible. Statin therapy has been initiated. We have advised compliance with medications. Job ID: [id number] DocumentID: [id number] Dictated Date: 04/20/2021 18:32:28 Canvas Worker Apprentice Date: 04/20/2021 21:07:08 Dictated By: NURA MELARA MD, MA, FACP, FACC, MTDD
[2021-04-20] MEDS: morphine INJ 4 MG/ML 1 ML (VIAL/SYRINGE) IVP PRN (21:20)
[2021-04-20 22:11] LABS: BILIRUBIN,URINE NEGATIVE (NEGATIVE); CLARITY,URINE CLEAR; COLOR,URINE YELLOW; GLUCOSE, URINE (UA) NEGATIVE (NEGATIVE); KETONES,URINE NEGATIVE (NEGATIVE); LEUKOCYTE ESTERASE ,URINE NEGATIVE (NEGATIVE); NITRITE,URINE NEGATIVE (NEGATIVE); PROTEIN,URINE NEGATIVE (NEGATIVE)
[2021-04-20 22:12] LABS: AMORPHOUS SEDIMENT,UR RARE AMOR URATES /LPF; BACTERIA,URINE NEGATIVE /HPF
[2021-04-20 22:18] LABS: AMPHETAMINE SCREEN, URINE POSITIVE (NEGATIVE); BARBITURATE SCREEN URINE NEGATIVE (NEGATIVE); BENZODIAZEPINES SCREEN URINE NEGATIVE (NEGATIVE); CANNABINOID SCREEN, URINE NEGATIVE (NEGATIVE); COCAINE SCREEN URINE NEGATIVE (NEGATIVE); METHADONE STAT NEGATIVE (NEGATIVE); METHAMPHETAMINE SCREEN URINE S POSITIVE (NEGATIVE); OPIATE SCREEN URINE POSITIVE (NEGATIVE); OXYCODONE STAT NEGATIVE (NEGATIVE); PROPOXYPHENE STAT NEGATIVE (NEGATIVE); TRICYCLIC ANTIDEPRESSANTS SCRE NEGATIVE (NEGATIVE)
[2021-04-20] MEDS ORDERED: LORazepam INJ 2 MG/ML (ATIVAN) VIAL IVP ONE (22:45)
[2021-04-21] MEDS: morphine INJ 4 MG/ML 1 ML (VIAL/SYRINGE) IVP PRN (00:59)
[2021-04-21] MEDS: NS IV 1000 ML 1,000 ML IV SCH ×2 (02:57→14:30)
[2021-04-21 05:11] LABS: HEMATOCRIT 38 % (40-54); HEMOGLOBIN 12.6 g/dL (13.3-17.7); MEAN CORPUSCULAR HEMOGLOBIN 27 pg (25-34); MEAN CORPUSCULAR HGB CONC 33 g/dL (32-36); MEAN CORPUSCULAR VOLUME 82 fL (80-99); MEAN PLATELET VOLUME 9.4 fL (9.0-12.2); PLATELET COUNT 281 10^3/uL (130-400); WHITE BLOOD COUNT 4.3 10^3/uL (4.3-11.0)
[2021-04-21 05:34] LABS: POTASSIUM 3.8 MMOL/L (3.6-5.0)
[2021-04-21 05:35] LABS: ALBUMIN 3.3 GM/DL (3.2-4.5)
[2021-04-21 05:36] LABS: CALCIUM 8.2 MG/DL (8.5-10.1)
[2021-04-21 05:37] LABS: TOTAL PROTEIN 6.9 GM/DL (6.4-8.2)
[2021-04-21 05:39] LABS: BILIRUBIN,TOTAL 0.3 MG/DL (0.1-1.0)
[2021-04-21 05:41] LABS: CREATININE SERUM 1.47 MG/DL (0.60-1.30)
[2021-04-21] MEDS: ENOXAPARIN 80 MG/0.8 ML (LOVENOX) SYR SC SCH ×2 (06:02→17:42)
[2021-04-21] MEDS: amLODIPine 5 MG (NORVASC) TAB PO SCH (09:12)
[2021-04-21] MEDS: ASPIRIN 81 MG CHEW (CHILDREN'S ASA) PO SCH (09:12)
[2021-04-21] MEDS: meTOproloL SUCCINATE 50 MG (TOPROL XL) TAB PO SCH (09:13)
[2021-04-21] MEDS: CLOPIDOGREL 75 MG (PLAVIX) TABLET PO SCH (09:13)
--- NOTE | 2021-04-21 09:21 | Tele-ICU Progress Note ---
Progress Note video rounds completed 65 y/o male admitted with STEMI Taken to pathology laboratory director, no interventions Small caliber vessel not amenable to PCI Now on duakl antiplt tx and statin and beta anjali PE: currently eating breakfast, comfortable VSS PLAN: as per cardiology Focused Exam Height, Weight, BMI Height: 5'11.00" Weight: 179lbs. oz. 81.671630uv; 26.15 BMI Method:Stated Labs Laboratory Tests 04/20/21 17:04 04/21/21 05:04 Labs Labs Laboratory Tests 04/20/21 17:04: White Blood Count 5.6, Red Blood Count 4.61, Hemoglobin 12.4L, Hematocrit 38L, Mean Corpuscular Volume 83, Mean Corpuscular Hemoglobin 27, Mean Corpuscular Hem oglobin Concent 33, Red Cell Distribution Width 15.1H, Platelet Count 286, Mean Platelet Volume 9.5, Immature Granulocyte % (Auto) 0, Neutrophils (%) (Auto) 41L , Lymphocytes (%) (Auto) 47H, Monocytes (%) (Auto) 8, Eosinophils (%) (Auto) 4, Basophils (%) (Auto) 1, Neutrophils # (Auto) 2.3, Lymphocytes # (Auto) 2.6, Monocytes # (Auto) 0.5, Eosinophils # (Auto) 0.2, Basophils # (Auto) 0.1, Immature Granulocyte # (Auto) 0.0, Prothrombin Time 13.6, INR Comment 1.0, Activated Partial Thromboplast Time > 200*H, Sodium Level 139, Potassium Level 3.3L, Chloride Level 103, Carbon Dioxide Level 24, Anion Gap 12, Blood Urea Nitrogen 25H, Creatinine 1.54H, Estimat Glomerular Filtration Rate 55, BUN/Creatinine Ratio 16, Glucose Level 89, Calcium Level 8.7, Corrected Calcium 9.0, Magnesium Level 2.0, Total Bilirubin 0.3, Aspartate Amino Transf (AST/SGOT) 37H, Alanine Aminotransferase (ALT/SGPT) 52, Alkaline Phosphatase 73, Myoglobin 143.9H, Troponin I 0.049H, Total Protein 7.3, Albumin 3.6 04/20/21 21:47: Urine Color YELLOW, Urine Clarity CLEAR, Urine pH 6.0, Urine Specific [place] 1.020, Urine Protein NEGATIVE, Urine Glucose (UA) NEGATIVE, Urine Ketones NEGATIVE, Urine Nitrite NEGATIVE, Urine Bilirubin NEGATIVE, Urine Urobilinogen 0.2, Urine Leukocyte Esterase NEGATIVE, Urine RBC (Auto) NEGATIVE, Urine RBC NONE, Urine WBC NONE, Urine Crystals PRESENTH, Urine Amorphous Sediment RARE NICOLAS URATESH, Urine Bacteria NEGATIVE, Urine Casts NONE, Urine Mucus NEGATIVE, Urine Culture Indicated NO, Urine Opiates Screen POSITIVEH, Urine Oxycodone Screen NEGATIVE, Urine Methadone Screen NEGATIVE, Urine Propoxyphene Screen NEGATIVE, Urine Barbiturates Screen NEGATIVE, Ur Tricyclic Antidepressants Screen NEGATIVE, Urine Phencyclidine Screen NEGATIVE, Urine Amphetamines Screen POSITIVEH, Urine Methamphetamines Screen POSITIVEH, Urine Benzodiazepines Screen NEGATIVE, Urine Cocaine Screen NEGATIVE, Urine Cannabinoids Screen NEGATIVE 04/21/21 05:04: White Blood Count 4.3, Red Blood Count 4.67, Hemoglobin 12.6L, Hematocrit 38L, Mean Corpuscular Volume 82, Mean Corpuscular Hemoglobin 27, Mean Corpuscular Hemoglobin Concent 33, Red Cell Distribution Width 15.3H, Platelet Count 281, Mean Platelet Volume 9.4, Sodium Level 139, Potassium Level 3.8, Chloride Level 107, Carbon Dioxide Level 23, Anion Gap 9, Blood Urea Nitrogen 19H, Creatinine 1.47H, Estimat Glomerular Filtration Rate 58, BUN/Creatinine Ratio 13, Glucose Level 105, Calcium Level 8.2L, Corrected Calcium 8.8, Total Bilirubin 0.3, Aspartate Amino Transf (AST/SGOT) 37H, Alanine Aminotransferase (ALT/SGPT) 47, Alkaline Phosphatase 69, Total Protein 6.9, Albumin 3.3, Triglycerides Level 111, Cholesterol Level 177, LDL Cholesterol Direct 117, VLDL Cholesterol 22, HDL Cholesterol 38L STALIN SNOW MD Apr 21, 2021 09:21
--- NOTE | 2021-04-21 13:20 | Progress Note - Cardiology ---
Cardiology SOAP Progress Note Subjective: No cp or palp or syncope No shortness of breath No swelling or groin or leg discomfort No n/v/d Some gen malaise but is improving Objective: I&O/Vital Signs 04/21/21 04/21/21 04/21/21 04/21/21 02:00 03:00 04:00 04:00 Temp 36.2 Pulse 81 85 Resp 14 25 B/P (MAP) 117/95 122/85 Pulse Ox 100 100 95 O2 Delivery Room Air Room Air Room Air Room Air 04/21/21 04/21/21 04/21/21 04/21/21 04:00 05:00 06:00 07:00 Pulse 81 79 85 84 Resp 16 14 15 B/P (MAP) 123/82 116/84 125/90 Pulse Ox 98 99 99 O2 Delivery Room Air Room Air Room Air 04/21/21 04/21/21 04/21/21 04/21/21 07:00 07:15 07:28 07:30 Temp 36.7 Pulse 76 88 80 Resp 10 B/P (MAP) 125/85 145/103 117/88 Pulse Ox 99 100 100 O2 Delivery Room Air Room Air Room Air 04/21/21 04/21/21 04/21/21 04/21/21 07:45 08:00 08:00 09:00 Pulse 78 79 75 Resp 15 B/P (MAP) 119/83 122/86 116/79 Pulse Ox 99 99 96 98 O2 Delivery Room Air Room Air Room Air Room Air 04/21/21 04/21/21 04/21/21 04/21/21 10:00 11:00 12:00 13:00 Pulse 79 69 76 75 Resp 14 B/P (MAP) 132/95 119/79 127/82 155/106 Pulse Ox 100 100 100 100 O2 Delivery Room Air Room Air Room Air Room Air 04/21/21 13:00 Pulse 75 04/21/21 00:00 Intake Total 600 ml Output Total 1300 ml Balance -700 ml Weight (Pounds): 179 Weight (Calculated Kilograms): 81.087354 Constitutional: AAO x 3 (albeit somewhat somnolent); No apparent distress; well-developed, well-nourished Respiratory: No accessory muscle use; other (good, bilateral air entry) Cardiovascular: regular rate-rhythm, S1 and S2, systolic murmur (soft BRIAN at card base) Gastrointestional: No tender; soft; No guarding, No rebound; audible bowel sounds Extremities: No clubbing, No cyanosis, No significant edema Neurologic/Psychiatric: other (moves all limbs equally) Skin: No rash on exposed areas, No ulcerations on exposed areas Results/Procedures: Labs Laboratory Tests 04/20/21 17:04: White Blood Count 5.6, Red Blood Count 4.61, Hemoglobin 12.4L, Hematocrit 38L, Mean Corpuscular Volume 83, Mean Corpuscular Hemoglobin 27, Mean Corpuscular Hemoglobin Concent 33, Red Cell Distribution Width 15.1H, Platelet Count 286, Mean Platelet Volume 9.5, Immature Granulocyte % (Auto) 0, Neutrophils (%) (Auto) 41L, Lymphocytes (%) (Auto) 47H, Monocytes (%) (Auto) 8, Eosinophils (%) (Auto) 4, Basophils (%) (Auto) 1, Neutrophils # (Auto) 2.3, Lymphocytes # (Auto) 2.6, Monocytes # (Auto) 0.5, Eosinophils # (Auto) 0.2, Basophils # (Auto) 0.1, Immature Granulocyte # (Auto) 0.0, Prothrombin Time 13.6, INR Comment 1.0, Activated Partial Thromboplast Time > 200*H, Sodium Level 139, Potassium Level 3.3L, Chloride Level 103, Carbon Dioxide Level 24, Anion Gap 12, Blood Urea Nitrogen 25H, Creatinine 1.54H, Estimat Glomerular Filtration Rate 55, BUN/Creatinine Ratio 16, Glucose Level 89, Calcium Level 8.7, Corrected Calcium 9.0, Magnesium Level 2.0, Total Bilirubin 0.3, Aspartate Amino Transf (AST/SGOT) 37H, Alanine Aminotransferase (ALT/SGPT) 52, Alkaline Phosphatase 73, Myoglobin 143.9H, Troponin I 0.049H, Total Protein 7.3, Albumin 3.6 04/20/21 21:47: Urine Color YELLOW, Urine Clarity CLEAR, Urine pH 6.0, Urine Specific [place] 1.020, Urine Protein NEGATIVE, Urine Glucose (UA) NEGATIVE, Urine Ketones NEGATIVE, Urine Nitrite NEGATIVE, Urine Bilirubin NEGATIVE, Urine Urobilinogen 0.2, Urine Leukocyte Esterase NEGATIVE, Urine RBC (Auto) NEGATIVE, Urine RBC NONE, Urine WBC NONE, Urine Crystals PRESENTH, Urine Amorphous Sediment RARE NICOLAS URATESH, Urine Bacteria NEGATIVE, Urine Casts NONE, Urine Mucus NEGATIVE, Urine Culture Indicated NO, Urine Opiates Screen POSITIVEH, Urine Oxycodone Screen NEGATIVE, Urine Methadone Screen NEGATIVE, Urine Propoxyphene Screen NEGATIVE, Urine Barbiturates Screen NEGATIVE, Ur Tricyclic Antidepressants Screen NEGATIVE, Urine Phencyclidine Screen NEGATIVE, Urine Amphetamines Screen POSITIVEH, Urine Methamphetamines Screen POSITIVEH, Urine Benzodiazepines Screen NEGATIVE, Urine Cocaine Screen NEGATIVE, Urine Cannabinoids Screen NEGATIVE 04/21/21 05:04: White Blood Count 4.3, Red Blood Count 4.67, Hemoglobin 12.6L, Hematocrit 38L, Mean Corpuscular Volume 82, Mean Corpuscular Hemoglobin 27, Mean Corpuscular Hemoglobin Concent 33, Red Cell Distribution Width 15.3H, Platelet Count 281, Mean Platelet Volume 9.4, Sodium Level 139, Potassium Level 3.8, Chloride Level 107, Carbon Dioxide Level 23, Anion Gap 9, Blood Urea Nitrogen 19H, Creatinine 1.47H, Estimat Glomerular Filtration Rate 58, BUN/Creatinine Ratio 13, Glucose Level 105, Calcium Level 8.2L, Corrected Calcium 8.8, Total Bilirubin 0.3, Aspartate Amino Transf (AST/SGOT) 37H, Alanine Aminotransferase (ALT/SGPT) 47, Alkaline Phosphatase 69, Total Protein 6.9, Albumin 3.3, Triglycerides Level 111, Cholesterol Level 177, LDL Cholesterol Direct 117, VLDL Cholesterol 22, HDL Cholesterol 38L Laboratory Tests 04/20/21 17:04 04/21/21 05:04 A/P: Assessment: Ac [place] (minimal ST elevation in a single lead - lead III) - Card cath 04/20/21: shows LMCA ok, mild LAD plaques, probable mid LCx stent w/o restenoses, multiple up to 50 in LCX, dominant RCA with multiple 50s in prox and distal portions, and subtotal occlusion of a very small caliber RV branch that is not amenable to intervention; LVEDP 35, LVEF 40% - Echo 04/21/21: mild diff hypokinesis, LVEF 45-50%, PASP 25 - 30 mmHg H/o hypertension H/o hyperlipidemia H/o noncompliance with meds Plan: * Medical therapy because culprit vessel is a miniscule RV branch of RCA. There are multiple mod lesions within the RCA and the LCx * Dual antiplatelet therapy * Lovenox for 24 more hours * Beta-anjali and SERG-inhibitor * Statin * Monitor labs * Advised med compliance Clinical Quality Measures AMI/AHF: ASA po Prior to arrival: NURA Durham MD [facility] Apr 21, 2021 13:20
[2021-04-22] MEDS: meTOproloL SUCCINATE 50 MG (TOPROL XL) TAB PO SCH (08:47)
[2021-04-22] MEDS: amLODIPine 5 MG (NORVASC) TAB PO SCH (08:47)
[2021-04-22] MEDS: ENOXAPARIN 80 MG/0.8 ML (LOVENOX) SYR SC SCH (08:47)
[2021-04-22] MEDS: CLOPIDOGREL 75 MG (PLAVIX) TABLET PO SCH (08:47)
[2021-04-22] MEDS: ASPIRIN 81 MG CHEW (CHILDREN'S ASA) PO SCH (08:47)
[2021-04-22] MEDS: NS IV 1000 ML 1,000 ML IV SCH (08:53)
--- NOTE | 2021-04-22 10:34 | Progress Note - Cardiology ---
Cardiology SOAP Progress Note Subjective: No cp or palp or syncope or shortness of breath or swelling No n/v/d No groin or leg discomfort Has been up and about. Has walked tor 10 min continuously on the floor. Feels well and insists on going home Objective: I&O/Vital Signs 04/22/21 04/22/21 04/22/21 04/22/21 00:00 00:00 00:00 01:00 Temp 37.0 Pulse 74 80 Resp 14 B/P (MAP) Pulse Ox 99 95 O2 Delivery Room Air Room Air 04/22/21 04/22/21 04/22/21 04/22/21 04:00 04:00 04:00 07:00 Temp 36.8 Pulse 85 78 Resp 25 B/P (MAP) 144/105 Pulse Ox 98 99 O2 Delivery Room Air Room Air 04/22/21 04/22/21 08:00 08:28 Temp 36.5 Pulse Ox 99 O2 Delivery Room Air 04/22/21 00:00 Intake Total 1360 ml Output Total 1000 ml Balance 360 ml Weight (Pounds): 179 Weight (Calculated Kilograms): 81.099978 Constitutional: AAO x 3 (albeit somewhat somnolent); No apparent distress; well-developed, well-nourished Respiratory: No accessory muscle use; other (good, bilateral air entry) Cardiovascular: regular rate-rhythm, S1 and S2, systolic murmur (soft BRIAN at card base) Gastrointestional: No tender; soft; No guarding, No rebound; audible bowel sounds Extremities: No clubbing, No cyanosis, No significant edema Neurologic/Psychiatric: other (moves all limbs equally) Skin: No rash on exposed areas, No ulcerations on exposed areas Results/Procedures: Labs Microbiology 04/20/21 MRSA Screen - Final, Complete MRSA not isolated Laboratory Tests 04/20/21 17:04 04/21/21 05:04 A/P: Assessment: Ac [place] (minimal ST elevation in a single lead - lead III) - Card cath 04/20/21: shows LMCA ok, mild LAD plaques, probable mid LCx stent w /o restenoses, multiple up to 50 in LCX, dominant RCA with multiple 50s in prox and distal portions, and subtotal occlusion of a very small caliber RV branch that is not amenable to intervention; LVEDP 35, LVEF 40% - Echo 04/21/21: mild diff hypokinesis, LVEF 45-50%, PASP 25 - 30 mmHg Hypertension H/o hyperlipidemia H/o noncompliance with meds Renal insuff of undetermined age, stable/improving Plan: * Medical therapy because culprit vessel is a miniscule RV branch of RCA. There are multiple mod lesions within the RCA and the LCx * Continue current regimen: Dual antiplatelet therapy; Beta-anjali and SERG- inhibitor; Statin * Add SERG-inhib because still somewhat hypertensive and because of mild cardiomyopathy. We are initiating a low dose because of mild to mod renal i nsuff. This needs to be followed up on closely. We offered f/u at our office next week. He refuses. He states he will f/u with his pcp and binman. He understands that he needs to be compliant with meds and that he must have f/u lab work to include renal and electrolyte profile and have his meds adjusted accordingly. We have also advised f/u on PTT. The only PTT that he had done at the hospital was immediately post iv heparin and was, accordingly elevated. That is why it would be advisable to have it repeated after he has been off heparin/enoxaparin. We have also discussed risk factor modification in detail and the importance of compliance with meds and. We have advised him of his mild cardiomyopathy and that it needs to be followed up on. We have advised to see his pcp and binman within a week of his discharge from the hospital. He understands Clinical Quality Measures AMI/AHF: ASA po Prior to arrival: NURA Durham MD [facility] Apr 22, 2021 10:34
[2021-04-22] MEDS ORDERED: lisINopril 5 MG (PRINIVIL) TABLET PO ONE (10:45)
[2021-04-22] MEDS ORDERED: ASPI81TA64 PO (10:48)
[2021-04-22] MEDS ORDERED: METO50TA7 PO (10:48)
[2021-04-22] MEDS ORDERED: LISI2.5T13 PO (10:48)
[2021-04-22] MEDS ORDERED: ATOR80TA76 PO (10:48)
[2021-04-22] MEDS ORDERED: CLOP75TA28 PO (10:48)
--- NOTE | 2021-04-22 10:50 | Discharge Inst-Post CATH ---
Discharge Inst-CATH/EP Post Cardiac Cath/EP D/C Inst Follow Up/Plan F/u with your facilities operations technician within a week ACTIVITY * Go Home directly and rest. * Limit activity of the leg (or wrist if it was used) for 7 days including aerobics, swimming, jogging, bicycling, etc. * Restrict stair-climbing for 7 days if possible, if not, climb up with your non-cath leg, then bring together on the same step. * Avoid lifting, pushing, pulling or excessive movement of the affected extremity for 7 days. * Customary sexual activity may be resumed after 2 days-use caution not to use a position that strains or causes pain to the affected extremity. * No driving for 24 hours. * NO SMOKING. * Avoid straining for bowel movements for 7 days. * Gentle walking on level ground is allowed. * Returning to work will depend on the type of procedure and the results. Your doctor will discuss this with you. CALL YOUR DOCTOR FOR ANY OF THE FOLLOWING: *If bleeding from the puncture site occurs- Apply gentle pressure to site with clean cloth and call your doctor or EMS. * If a knot or lump forms under the skin, increases in size, or causes pain. * If bruising appears to be worsening or moving further down your leg instead of disappearing. * Temperature above 101 F. CARE OF YOUR GROIN INCISION; * Bruising or purple discoloration of the skin near the puncture site is common. * You may shower only, no bathtub bathing for 5 days. Be careful to avoid slipping as your leg may feel stiff. * If a closure device was used on your femoral artery, please see the attached guide regarding care of the device and your leg. * Leave dressing on FOR 24 hours. CARE OF YOUR WRIST INCISION; * Bruising or purple discoloration of the skin near the puncture site is common. * You may shower. * DO NOT submerge wrist. * Leave dressing on FOR 24 hours. NURA MELARA MD [facility] Apr 22, 2021 10:50
--- NOTE | 2021-04-22 10:50 | Discharge Inst-Cardiology ---
Discharge Inst-Cardiac Discharge Medications New Medications: PENDING: Lisinopril (Lisinopril) 2.5 Mg Tablet 2.5 MG PO DAILY, #30 TAB 1 Refill PENDING: Aspirin (Children's Aspirin) 81 Mg Tab.chew 81 MG PO DAILY for 30 Days, #30 TAB 2 Refills PENDING: Atorvastatin Calcium (Atorvastatin Calcium) 80 Mg Tablet 80 MG PO HS for 30 Days, #30 TAB 1 Refill PENDING: Clopidogrel Bisulfate (Clopidogrel) 75 Mg Tablet 75 MG PO DAILY for 30 Days, #30 TAB 1 Refill PENDING: Metoprolol Succinate (Metoprolol Succinate) 50 Mg Tab.er.24h 50 MG PO DAILY for 30 Days, #30 TAB 1 Refill Continued Medications: Amlodipine Besylate (Norvasc Tablet) 5 Mg Tab 5 MG GT DAILY, #30 TAB Discontinued Medications: Indomethacin (Indocin Capsule) 25 Mg Cap 25 MG PO TID, #30 CAP Lisinopril (Prinivil) 20 Mg Tablet 20 MG PO DAILY, #30 TAB Ondansetron (Ondansetron Odt) 4 Mg Tab.rapdis 4 MG PO TID for Nausea, #10 TAB NURA MELARA MD FACP [facility]S Apr 22, 2021 10:50
[2021-04-22 11:31] LABS: POTASSIUM 3.7 MMOL/L (3.6-5.0)
[2021-04-22 11:32] LABS: CALCIUM 8.4 MG/DL (8.5-10.1)
[2021-04-22 11:36] LABS: CREATININE SERUM 1.33 MG/DL (0.60-1.30)
--- NOTE | 2021-04-22 12:43 | Cardiology Discharge Summary ---
Diagnosis/Chief Complaint Date of Admission 04/20/21 Date of Discharge 04/22/21 Final/Discharge Diagnosis Ac [place] (minimal ST elevation in a single lead - lead III) - Card cath 04/20/21: shows LMCA ok, mild LAD plaques, probable mid LCx stent w/o restenoses, multiple up to 50 in LCX, dominant RCA with multiple 50s in prox and distal portions, and subtotal occlusion of a very small caliber RV branch that is not amenable to intervention; LVEDP 35, LVEF 40% - Echo 04/21/21: mild diff hypokinesis, LVEF 45-50%, PASP 25 - 30 mmHg Hypertension H/o hyperlipidemia H/o noncompliance with meds Renal insuff of undetermined age, stable/improving Chief Complaint/HPI Chief Complaint/HPI CC: Chest pain HPI 65 yo man chest pain that began about 2 hours ago prior to presentation to this hosp. History of GA with stents placed in [place] about 1 year ago. States has not been taking any meds, including his Plavix. EMS noted ST segment elevation in leads III, gave 324 mg of aspirin and 4 mg of morphine. This took his pain from a 10 out of 10 to a 5 out of 10. Provided informed consent for emergency card cath and possible ad hoc cor intervetnion. No pain at the time of arrival to the general production laborer. Records indicate a history of hypertension hyperlipidemia coronary artery disease. Denies smoking. Occasionally uses marijuana Cath done on day of admission. See report Please see our progress note of the same date for condition and instructions at discharge Discharge Summary Procedures None. Hospital Course Pending Labs Laboratory Tests 04/22/21 11:03: Activated Partial Thromboplast Time 42, Sodium Level 139, Potassium Level 3.7, Chloride Level 107, Carbon Dioxide Level 23, Anion Gap 9, Blood Urea Nitrogen 15, Creatinine 1.33, Estimat Glomerular Filtration Rate 66, BUN/Creatinine Ratio 11, Glucose Level 105, Calcium Level 8.4, Magnesium Level 2.0 Discussion & Recommendations Home Medications Reviewed patient Home Medication Reconciliation performed by pharmacy medication reconciliations communications technician and/or nursing. Patients Allergies have been reviewed. Discharge Home Medications: Reviewed and agree with Discharge Medication list on patient's Discharge Instruction sheet Instructions to patient/family F/u with your rougher for cement within a week Clinical Quality Measures AMI/AHF: ASA po Prior to arrival: NURA Durham MD FACP [facility] CCDS Apr 22, 2021 12:43
[2021-04-23] MEDS ORDERED: lisINopril 5 MG (PRINIVIL) TABLET PO SCH (09:00)
== END 2021-04-22 13:35 | disposition home or self-care (01) ==
LOC: EDUNIT# 16:52 → ER 16:53 → CATH 17:20 → ICU 18:18 → CATH 04-22 13:35
PROVIDERS: ATTEND Internal Medicine Cardiovascular Disease
DX: I25.2 Old myocardial infarction (principal); E78.00 Pure hypercholesterolemia, unspecified; M19.90 Unspecified osteoarthritis, unspecified site; I10 Essential (primary) hypertension; E78.5 Hyperlipidemia, unspecified; N28.9 Disorder of kidney and ureter, unspecified; I25.10 Atherosclerotic heart disease of native coronary artery without angina pectoris; Z95.5 Presence of coronary angioplasty implant and graft; Z91.14 Patient's other noncompliance with medication regimen; Z79.899 Other long term (current) drug therapy; Z79.82 Long term (current) use of aspirin; Z79.02 Long term (current) use of antithrombotics/antiplatelets
CPT/HCPCS: 80048; 80053 ×2; 80061; 80306; 81000; 83735 ×2; 83874; 84484; 85025; 85027; 85610; 85730 ×2; 87081; 93005 ×2; 93041; 93306; 93458; 93567; 99285; C1760; C1887; C1894; 36415